=== PATIENT | female | born 1960 | race Caucasian/White ===

== ENCOUNTER → 2017-09-22 | Outpatient (CLI) | payer OTHER ==
[~2017-09-22] MED LIST: ACET-2900 PO; ALBU8.5H8 IH; ARIP5TAB9 PO; CALC560O TP; CYCL30DR OP; DICL4100G TP; ERGO500014 PO; EYEL1KIT TP; FLUT100B IH; FLUT9.9S NS; FOLI0.8T PO; IRON50VI3 IJ; LIDOP TP; LIGH1DRO OP; MONT10TA24 PO; PROM25 PO; PROM6.25 PO; TRIA15CR48 TP; VITAMIN B12 1000 MCG IM; [UNRECOGNIZED DRUG - CODE] PO
== END | disposition home or self-care (01) ==
LOC: OIH 13:41
PROVIDERS: ATTEND Internal Medicine Cardiovascular Disease
DX: Z13.6 Encounter for screening for cardiovascular disorders (principal)
CPT/HCPCS: 75571

== ENCOUNTER → 2017-12-04 | Outpatient (CLI) | payer MEDICARE, BC ==
[~2017-12-04] MED LIST changes: -PROM6.25 PO; +PROM6.254 PO
[2017-12-04 13:36] LABS: ABG BASE EXCESS 4.2 mmol/L (-2.0-3.0); ABG HCO3 28.7 mmol/L (21.0-28.0); ABG PCO2 43 mmHg (32-45)
== END | disposition home or self-care (01) ==
LOC: RAH 14:03
PROVIDERS: ATTEND Urology
DX: N20.0 Calculus of kidney (principal); K57.90 Diverticulosis of intestine, part unspecified, without perforation or abscess without bleeding; R79.89 Other specified abnormal findings of blood chemistry; Z87.440 Personal history of urinary (tract) infections
CPT/HCPCS: 76770; 82330; 82435; 82803; 82947; 83605; 84132; 84295; 85018

== ENCOUNTER → 2018-04-04 | Outpatient (CLI) | payer MEDICARE, BC | END | disposition home or self-care (01) | LOC: RAH 10:37 | PROVIDERS: ATTEND Internal Medicine | DX: R10.9 Unspecified abdominal pain (principal); R11.2 Nausea with vomiting, unspecified; R14.0 Abdominal distension (gaseous); Z98.84 Bariatric surgery status | CPT/HCPCS: 78264; A9541 ==

== ENCOUNTER → 2019-07-04 | Outpatient (CLI) | payer MEDICARE ==
[~2019-07-04] MED LIST changes: -ACET-2900 PO; +ACET-3194 PO; +ARIP5TAB13 PO; -ARIP5TAB9 PO
== END | disposition home or self-care (01) ==
LOC: RAH 12:09
PROVIDERS: ATTEND Internal Medicine
DX: M47.812 Spondylosis without myelopathy or radiculopathy, cervical region (principal)
CPT/HCPCS: 72040

== ENCOUNTER → 2020-01-09 | Outpatient (CLI) | payer MEDICARE | END | disposition home or self-care (01) | LOC: RAH 12:30 | PROVIDERS: ATTEND Physical Medicine & Rehabilitation | DX: M47.812 Spondylosis without myelopathy or radiculopathy, cervical region (principal) ==

== ENCOUNTER 2020-07-23 11:12 | Emergency (ER) | payer MEDICARE ==
[~2020-07-23 11:12] MED LIST changes: -ALBU8.5H8 IH; -ARIP5TAB13 PO; -CALC560O TP; +CHOL12502 PO; +CLOP75TA14 PO; -CYCL30DR OP; +DIPH1TAB PO; -ERGO500014 PO; +ESTR42.53 VG; -EYEL1KIT TP; +FAMO20TA8 PO; -FLUT100B IH; -FLUT9.9S NS; -FOLI0.8T PO; +FOLI0.8T3 PO; -IRON50VI3 IJ; +LAMO25TA3 PO; -LIDOP TP; -LIGH1DRO OP; +LOPE2TAB26 PO; -MONT10TA24 PO; +PREG25 PO; +PROM12.513 PO; -PROM25 PO; -PROM6.254 PO; +ROSU5TAB12 PO; +TEMO15C TP; +TIZA-211 PO; -TRIA15CR48 TP; -[UNRECOGNIZED DRUG - CODE] PO
[2020-07-23] MEDS ORDERED: MAG/ALUM/SIMETH 30 ML UDCUP ONE (11:40)
[2020-07-23] MEDS ORDERED: LIDOCAINE HCL 2% VISCOUS 15 ML UDCUP ONE (11:40)
[2020-07-23 11:51] LABS: BASOPHILS % (AUTO) 0.8 % (0.0-5.0); EOSINOPHILS % (AUTO) 2.2 % (0.0-8.0); HEMATOCRIT 43.7 % (36-48); LYMPHOCYTES % (AUTO) 34.9 % (21.0-51.0); MEAN CORPUSCULAR HEMOGLOBIN 30.5 pg (27.0-33.0); MEAN CORPUSCULAR HGB CONC 33.4 g/dL (32.0-36.0); MEAN CORPUSCULAR VOLUME 91.2 fL (79-99); MONOCYTES % (AUTO) 9.4 % (3.0-13.0); NEUTROPHILS % (AUTO) 52.5 % (40.0-77.0); PLATELET COUNT (AUTO) 192 K/uL (130-400); RED BLOOD CELL COUNT(AUTO) 4.79 MIL/uL (4.00-5.50); RED CELL DISTRIBUTION WIDTH 12.2 % (11.0-15.5)
[2020-07-23 12:17] LABS: ALBUMIN 4.3 g/dL (3.5-5.0); BILIRUBIN,TOTAL 0.4 mg/dL (0.2-1.0); CREATININE 0.9 mg/dL (0.5-1.5); MAGNESIUM 2.3 mg/dL (1.80-2.40); TOTAL PROTEIN, SERUM 7.5 g/dL (6.0-8.3)
[2020-07-23 12:22] LABS: APPEARANCE,URINE Clear (CLEAR); BILIRUBIN,URINE Negative (NEGATIVE); COLOR,URINE Yellow (YELLOW); GLUCOSE, URINE (UA) Negative (NEGATIVE); KETONES,URINE Negative (NEGATIVE); LEUKOCYTE ESTERASE ,URINE Trace (NEGATIVE); NITRATE,URINE Negative (NEGATIVE); OCCULT BLOOD,URINE Negative (NEGATIVE); PROTEIN,URINE Negative (NEGATIVE); UROBILINOGEN,URINE 0.2 mg/dL (0.2-1.0)
[2020-07-23 12:45] LABS: BACTERIA,URINE Rare /HPF (None Seen); MUCUS,URINE Rare LPF (None Seen); RBC,URINE 0-1 /HPF (0-1); SQUAMOUS EPITHELIAL CELL,UR Rare /HPF (0-2); WBC,URINE 0-1 /HPF (0-1)
[2020-07-23] MEDS ORDERED: IOHEXOL 350 MG/ML 100ML INFUS..BTL IV ONE (12:49)
[2020-07-23] MEDS ORDERED: PANTOPRAZOLE 40 MG/VIAL ONE (12:53)
[2020-07-23] MEDS ORDERED: BISACODYL 10 MG SUPP.RECT RC ONE (14:10)
[2020-07-23] MEDS ORDERED: MAGNESIUM CITRATE 296 ML SOLUTION PO SCH (14:30)
[2020-07-23] MEDS ORDERED: MAGNESIUM CITRATE 296 ML SOLUTION ONE (14:53)
[2020-07-23] MEDS ORDERED: PROCHLORPERAZINE 10MG/2ML INJ ONE (16:09)
[2021-01-26] MEDS ORDERED: PHENERG GT (14:50)
== END 2020-07-23 16:39 | disposition home or self-care (01) ==
LOC: EDH 11:12
DX: K59.00 Constipation, unspecified (principal); R11.10 Vomiting, unspecified; M19.90 Unspecified osteoarthritis, unspecified site; F31.9 Bipolar disorder, unspecified; K21.9 Gastro-esophageal reflux disease without esophagitis; I10 Essential (primary) hypertension; J45.909 Unspecified asthma, uncomplicated; Z90.49 Acquired absence of other specified parts of digestive tract; Z88.5 Allergy status to narcotic agent; Z88.1 Allergy status to other antibiotic agents; Z88.2 Allergy status to sulfonamides; Z88.8 Allergy status to other drugs, medicaments and biological substances; Z91.041 Radiographic dye allergy status
CPT/HCPCS: 36415; 74176; 80053; 81001; 82150; 83690; 83735; 85025; 93005; 96361; 96372; 96374; 99285; C9113; J0780; Q9967

== ENCOUNTER 2020-08-29 09:11 | Emergency (ER) | payer MEDICARE ==
[~2020-08-29 09:11] MED LIST changes: +FOLI0.8T PO; -FOLI0.8T3 PO; -TIZA-211 PO; +TIZA4TAB5 PO
[2020-08-29 10:38] LABS: BASOPHILS % (AUTO) 0.8 % (0.0-5.0); LYMPHOCYTES % (AUTO) 31.8 % (21.0-51.0); MEAN CORPUSCULAR HEMOGLOBIN 29.8 pg (27.0-33.0); MEAN CORPUSCULAR HGB CONC 32.7 g/dL (32.0-36.0); MEAN CORPUSCULAR VOLUME 91.1 fL (79-99); MONOCYTES % (AUTO) 8.4 % (3.0-13.0); NEUTROPHILS % (AUTO) 55.8 % (40.0-77.0); PLATELET COUNT (AUTO) 197 K/uL (130-400); RED BLOOD CELL COUNT(AUTO) 4.94 MIL/uL (4.00-5.50); RED CELL DISTRIBUTION WIDTH 12.6 % (11.0-15.5)
[2020-08-29] MEDS ORDERED: DIATR MEGLU/DIATRIZOATE SODIUM 30 ML BOTTLE ONE (10:38)
[2020-08-29 10:50] LABS: CREATININE 0.9 mg/dL (0.5-1.5); POTASSIUM 3.6 mmol/L (3.5-5.1)
[2020-08-29 10:54] LABS: ALBUMIN 4.4 g/dL (3.5-5.0); BILIRUBIN,TOTAL 0.6 mg/dL (0.2-1.0); TOTAL PROTEIN, SERUM 7.8 g/dL (6.0-8.3)
== END 2020-08-29 13:00 | disposition home or self-care (01) ==
LOC: EDH 09:11
DX: R13.10 Dysphagia, unspecified (principal); F41.9 Anxiety disorder, unspecified; R06.00 Dyspnea, unspecified; Z20.822 Contact with and (suspected) exposure to COVID-19; M19.90 Unspecified osteoarthritis, unspecified site; J45.909 Unspecified asthma, uncomplicated; F31.9 Bipolar disorder, unspecified; E11.9 Type 2 diabetes mellitus without complications; K21.9 Gastro-esophageal reflux disease without esophagitis; I10 Essential (primary) hypertension; Z90.49 Acquired absence of other specified parts of digestive tract; Z98.890 Other specified postprocedural states; Z91.041 Radiographic dye allergy status; Z88.5 Allergy status to narcotic agent; Z88.6 Allergy status to analgesic agent; Z88.2 Allergy status to sulfonamides; Z88.1 Allergy status to other antibiotic agents
CPT/HCPCS: 36415; 70490; 71045; 80053; 85025; 87426; 93005; 99285; Q9963; U0003

== ENCOUNTER → 2020-09-01 | Outpatient (CLI) | payer MEDICARE ==
[~2020-09-01] MED LIST changes: +FOLI1 PO; +SUCR1TAB28 PO
== END | disposition home or self-care (01) ==
LOC: RAH 10:02
PROVIDERS: ATTEND Internal Medicine Gastroenterology
DX: R13.12 Dysphagia, oropharyngeal phase (principal); R63.3 Feeding difficulties
CPT/HCPCS: 74230; 92611

== ENCOUNTER 2020-09-04 14:11 | Inpatient (IN) | payer MEDICARE ==
[~2020-09-04] VITALS: Ht 160 cm; Wt 66.7 kg
[~2020-09-04 14:11] MED LIST changes: -FOLI0.8T PO; +FOLI0.8T3 PO; -FOLI1 PO; -SUCR1TAB28 PO; +TIZA-211 PO; -TIZA4TAB5 PO
[2020-09-04] MEDS ORDERED: FOLI1 PO (14:22)
[2020-09-04] MEDS ORDERED: SUCR1TAB28 PO (14:22)
[2020-09-04] MEDS ORDERED: POTASSIUM CHLORIDE 20MEQ/100ML 100 ML IV PRN (15:00)
[2020-09-04] MEDS ORDERED: ACETAMINOPHEN 325 MG TAB PO PRN ×2 (15:00)
[2020-09-04] MEDS ORDERED: LIDOCAINE HCL-MPF 1% 2ML VIAL IV PRN (15:00)
[2020-09-04] MEDS ORDERED: PHARMACY COMMUNICATION MISC SCH ×2 (15:15)
[2020-09-04] MEDS ORDERED: GADODIAMIDE 10 MMOL/20 ML VIAL IV ONE (15:15)
[2020-09-04 15:40] LABS: BASOPHILS % (AUTO) 0.9 % (0.0-5.0); EOSINOPHILS % (AUTO) 2.1 % (0.0-8.0); HEMATOCRIT 45.1 % (36-48); LYMPHOCYTES % (AUTO) 32.6 % (21.0-51.0); MEAN CORPUSCULAR HEMOGLOBIN 30.2 pg (27.0-33.0); MEAN CORPUSCULAR HGB CONC 33.5 g/dL (32.0-36.0); MEAN CORPUSCULAR VOLUME 90.2 fL (79-99); MONOCYTES % (AUTO) 7.5 % (3.0-13.0); NEUTROPHILS % (AUTO) 56.7 % (40.0-77.0); PLATELET COUNT (AUTO) 214 K/uL (130-400); RED CELL DISTRIBUTION WIDTH 12.5 % (11.0-15.5); WHITE BLOOD COUNT (AUTO) 6.5 K/uL (4.8-10.8)
[2020-09-04 15:52] LABS: INR 0.97 (0.85-1.15); PROTHROMBIN TIME 10.6 SEC (9.6-11.6)
[2020-09-04 15:53] LABS: PARTIAL THROMBOPLASTIN TIME 25.3 SEC (26.3-35.5)
[2020-09-04] MEDS ORDERED: CLINIMIX-E4.25%AA/D5+LYT2000ML 2,000 ML IV ONE (16:00)
[2020-09-04 16:01] LABS: CREATININE 0.9 mg/dL (0.5-1.5); POTASSIUM 4.2 mmol/L (3.5-5.1)
[2020-09-04 16:06] LABS: ALBUMIN 4.4 g/dL (3.5-5.0); B-TYPE NATRIURETIC PEPTIDE < 5 pg/mL (0-100); BILIRUBIN,TOTAL 0.6 mg/dL (0.2-1.0); TOTAL PROTEIN, SERUM 7.6 g/dL (6.0-8.3)
[2020-09-04 17:10] VITALS: BP 130/79
[2020-09-04] MEDS: 0.9%NACL 1000ML 1,000 ML IV SCH (17:56)
[2020-09-04] MEDS: FERROUS GLUC NG SCH (17:57)
[2020-09-04] MEDS: MULTIVITS W MIN NG SCH (17:57)
[2020-09-04 20:00] VITALS: BP 153/102
[2020-09-04] MEDS: LAMOTRIGINE 25 MG TAB PO SCH (21:46)
[2020-09-04 23:43] VITALS: BP 148/90
[2020-09-05 04:00] VITALS: BP 146/87
[2020-09-05 04:03] LABS: HEMATOCRIT 40.8 % (36-48); MEAN CORPUSCULAR HEMOGLOBIN 29.5 pg (27.0-33.0); MEAN CORPUSCULAR HGB CONC 32.8 g/dL (32.0-36.0); MEAN CORPUSCULAR VOLUME 89.9 fL (79-99); RED BLOOD CELL COUNT(AUTO) 4.54 MIL/uL (4.00-5.50); RED CELL DISTRIBUTION WIDTH 12.3 % (11.0-15.5); WHITE BLOOD COUNT (AUTO) 5.3 K/uL (4.8-10.8)
[2020-09-05 04:14] LABS: CREATININE 0.7 mg/dL (0.5-1.5); POTASSIUM 4.1 mmol/L (3.5-5.1)
[2020-09-05] MEDS: 0.9%NACL 1000ML 1,000 ML IV SCH (04:43)
[2020-09-05] MEDS: FERROUS GLUC NG SCH ×2 (09:00→10:00)
[2020-09-05] MEDS: MULTIVITS W MIN NG SCH ×2 (09:00→10:00)
[2020-09-05 09:08] VITALS: BP 135/85
[2020-09-05 13:12] VITALS: BP 145/91
[2020-09-05] MEDS: DiphenhydrAMINE HCL 25 MG/10 ML ELIXIR UDCUP PEG PRN (16:59)
[2020-09-05 17:35] VITALS: BP 158/98
[2020-09-05 19:31] VITALS: BP 146/92
[2020-09-05] MEDS ORDERED: CLINIMIX-E4.25%AA/D5+LYT2000ML 2,000 ML IV ONE (20:00)
[2020-09-05] MEDS: LAMOTRIGINE 25 MG TAB PO SCH (21:47)
[2020-09-05 23:48] VITALS: BP 140/92
[2020-09-06 04:00] VITALS: BP 139/88
[2020-09-06] MEDS: 0.9%NACL 1000ML 1,000 ML IV SCH (06:28)
[2020-09-06 08:00] VITALS: BP 135/82
[2020-09-06] MEDS: MULTIVITS W MIN NG SCH (09:11)
[2020-09-06] MEDS: FERROUS GLUC NG SCH (09:11)
[2020-09-06] MEDS: FAMOTIDINE 20MG VIAL IV SCH (09:11)
[2020-09-06] MEDS: DiphenhydrAMINE HCL 25 MG/10 ML ELIXIR UDCUP PEG PRN ×2 (10:40→20:22)
[2020-09-06 11:53] VITALS: BP 156/103
[2020-09-06] MEDS ORDERED: LACTULOSE 20 GM/30 ML UDCUP PO PRN (12:45)
[2020-09-06 16:00] VITALS: BP 161/99
[2020-09-06 20:00] VITALS: BP 157/90
[2020-09-06] MEDS ORDERED: CLINIMIX-E4.25%AA/D5+LYT2000ML 2,000 ML IV SCH (20:00)
[2020-09-06] MEDS: LAMOTRIGINE 25 MG TAB PO SCH (20:25)
[2020-09-07] VITALS (25 sets, daily range): BP systolic 136–151; BP diastolic 67–94
[2020-09-07] MEDS: FAMOTIDINE 20MG VIAL IV SCH (09:00)
[2020-09-07] MEDS: FERROUS GLUC NG SCH (09:00)
[2020-09-07] MEDS: MULTIVITS W MIN NG SCH (09:00)
[2020-09-07] MEDS ORDERED: MAGNESIUM HYDROXIDE 30 ML/UDCUP PO PRN (09:45)
[2020-09-07] MEDS ORDERED: LIDOCAINE PF 100MG/5ML (2%) SYRINGE 5ML ONE (12:23)
[2020-09-07] MEDS ORDERED: ROCURONIUM 10MG/1ML SYR 10 MG/ML ML ONE (12:24)
[2020-09-07] MEDS ORDERED: MIDAZOLAM HCL 1 MG/ML 2ML VIAL ONE (12:24)
[2020-09-07] MEDS ORDERED: PROPOFOL 10 MG/ML 20ML VIAL IV ONE ×4 (12:24→13:52)
[2020-09-07] MEDS ORDERED: MEPERIDINE-PF 25 MG/ML SYG ONE ×2 (12:25→14:29)
[2020-09-07] MEDS ORDERED: BUPIVACAINE/PF 0.25% 30ML VIAL IJ ONE (13:27)
[2020-09-07] MEDS ORDERED: GLYCOPYRROLATE 1 MG/5 ML SYRINGE ONE (13:39)
[2020-09-07] MEDS ORDERED: NEOSTIGMINE 5MG/5ML SYR IV ONE (13:39)
[2020-09-07] MEDS ORDERED: DEXAMETHASONE SOD PHOSPHATE 10MG/ML 1ML VIAL ONE (13:43)
[2020-09-07] MEDS ORDERED: ESMOLOL HCL 10 MG/ML 10 ML VIAL ONE (13:45)
[2020-09-07] MEDS: ACETAMINOPHEN 650 MG/20.3 ML UDCUP PEG PRN (18:31)
[2020-09-07] MEDS: LAMOTRIGINE 25 MG TAB PO SCH (21:00)
[2020-09-07] MEDS ORDERED: ONDANSETRON 4MG INJ ONE (23:10)
[2020-09-07] MEDS ORDERED: ONDANSETRON 4MG INJ IVP PRN (23:15)
[2020-09-07] MEDS ORDERED: PROMETHAZINE HCL 25 MG/ML 1ML AMPULE IM PRN (23:30)
[2020-09-08 04:00] VITALS: BP 147/76
[2020-09-08 05:41] LABS: MEAN CORPUSCULAR HEMOGLOBIN 29.6 pg (27.0-33.0); MEAN CORPUSCULAR HGB CONC 33.2 g/dL (32.0-36.0); MEAN CORPUSCULAR VOLUME 89.3 fL (79-99); RED BLOOD CELL COUNT(AUTO) 4.59 MIL/uL (4.00-5.50); WHITE BLOOD COUNT (AUTO) 8.6 K/uL (4.8-10.8)
[2020-09-08 05:55] LABS: CREATININE 0.7 mg/dL (0.5-1.5); POTASSIUM 4.4 mmol/L (3.5-5.1)
[2020-09-08 07:35] VITALS: BP 155/88
[2020-09-08] MEDS: MULTIVITS W MIN NG SCH (09:00)
[2020-09-08] MEDS: FERROUS GLUC NG SCH (09:00)
[2020-09-08] MEDS ORDERED: CLINIMIX-E4.25%AA/D5+LYT2000ML 2,000 ML IV NR (09:00)
[2020-09-08] MEDS: FAMOTIDINE 20MG VIAL IV SCH (10:10)
[2020-09-08] MEDS: PROMETHAZINE HCL 25 MG/ML 1ML AMPULE IM PRN ×2 (10:29→22:53)
[2020-09-08 11:36] VITALS: BP 154/86
[2020-09-08 15:57] VITALS: BP 152/85
[2020-09-08 20:25] VITALS: BP 145/82
[2020-09-08] MEDS: LAMOTRIGINE 25 MG TAB PO SCH (20:38)
[2020-09-08 23:30] VITALS: BP 119/74
[2020-09-09] MEDS: ACETAMINOPHEN 650 MG/20.3 ML UDCUP PEG PRN ×2 (02:39→16:13)
[2020-09-09 03:50] VITALS: BP 118/63
[2020-09-09 06:19] LABS: MAGNESIUM 1.9 mg/dL (1.80-2.40); PHOSPHORUS 4.1 mg/dL (2.5-4.9)
[2020-09-09] MEDS: MULTIVITS W MIN NG SCH (09:00)
[2020-09-09] MEDS ORDERED: RANITIDINE HCL 15 MG/1 ML GT SCH (09:00)
[2020-09-09] MEDS: FERROUS GLUC NG SCH (09:00)
[2020-09-09 09:16] VITALS: BP 122/82
[2020-09-09 12:26] VITALS: BP 127/87
[2020-09-09] MEDS: PROMETHAZINE HCL 25 MG/ML 1ML AMPULE IM PRN (16:12)
[2020-09-09] MEDS: FAMOTIDINE 20MG TAB PO SCH ×2 (16:12→22:08)
[2020-09-09 16:18] VITALS: BP 135/81
[2020-09-09 19:15] VITALS: BP 125/81
[2020-09-09] MEDS: DiphenhydrAMINE HCL 25 MG/10 ML ELIXIR UDCUP PEG PRN (22:08)
[2020-09-09] MEDS: LAMOTRIGINE 25 MG TAB PO SCH (22:08)
[2020-09-10] MEDS: GUAIFENESIN-DM 200/20 MG 10 ML PO PRN ×2 (00:02→08:10)
[2020-09-10 00:07] VITALS: BP 143/85
[2020-09-10 04:12] VITALS: BP 122/78
[2020-09-10 05:09] LABS: HEMATOCRIT 40.3 % (36-48); MEAN CORPUSCULAR HEMOGLOBIN 29.6 pg (27.0-33.0); MEAN CORPUSCULAR HGB CONC 32.8 g/dL (32.0-36.0); MEAN CORPUSCULAR VOLUME 90.4 fL (79-99); RED BLOOD CELL COUNT(AUTO) 4.46 MIL/uL (4.00-5.50); RED CELL DISTRIBUTION WIDTH 12.4 % (11.0-15.5); WHITE BLOOD COUNT (AUTO) 6.9 K/uL (4.8-10.8)
[2020-09-10 05:18] LABS: CREATININE 0.8 mg/dL (0.5-1.5); POTASSIUM 3.6 mmol/L (3.5-5.1)
[2020-09-10] MEDS: FAMOTIDINE 20MG TAB PO SCH (08:10)
[2020-09-10] MEDS: DiphenhydrAMINE HCL 25 MG/10 ML ELIXIR UDCUP PEG PRN (08:10)
[2020-09-10 08:44] VITALS: BP 134/87
[2020-09-10] MEDS: MULTIVITS W MIN NG SCH (09:00)
[2020-09-10] MEDS: FERROUS GLUC NG SCH (09:00)
[2020-09-10] MEDS ORDERED: CETI-261 PO (09:31)
[2020-09-10] MEDS ORDERED: GUAIF10 PO (09:31)
[2020-09-10] MEDS ORDERED: FERROUS GLUC NG (09:33)
[2020-09-10] MEDS ORDERED: MULTIVITS W MIN NG (09:33)
[2020-09-10] MEDS ORDERED: ACET650S28 PEG (09:34)
[2020-09-10] MEDS ORDERED: CAL HN GT (09:46)
[2020-09-10 13:45] VITALS: BP 145/91
[2021-01-26] MEDS ORDERED: PHENERG GT (14:50)
== END 2020-09-10 19:55 | DRG 327 ==
LOC: EDH 14:11 → EDHIP 14:48 → 3BH 15:54
PROVIDERS: ADMIT Internal Medicine; ATTEND Internal Medicine
PROC: 0DH60UZ Insertion of Feeding Device into Stomach, Open Approach (ICD-10-PCS; principal; 2020-09-07 13:02)
DX: R13.12 Dysphagia, oropharyngeal phase (principal); K91.2 Postsurgical malabsorption, not elsewhere classified; G72.0 Drug-induced myopathy; S19.9XXA Unspecified injury of neck, initial encounter; D63.8 Anemia in other chronic diseases classified elsewhere; E11.43 Type 2 diabetes mellitus with diabetic autonomic (poly)neuropathy; E53.8 Deficiency of other specified B group vitamins; E55.9 Vitamin D deficiency, unspecified; K31.84 Gastroparesis; F31.9 Bipolar disorder, unspecified; E78.2 Mixed hyperlipidemia; G47.33 Obstructive sleep apnea (adult) (pediatric); I70.0 Atherosclerosis of aorta; J38.01 Paralysis of vocal cords and larynx, unilateral; J45.909 Unspecified asthma, uncomplicated; K21.9 Gastro-esophageal reflux disease without esophagitis; K52.831 Collagenous colitis; L40.50 Arthropathic psoriasis, unspecified; N30.20 Other chronic cystitis without hematuria; N32.81 Overactive bladder; M15.9 Polyosteoarthritis, unspecified; T46.6X5A Adverse effect of antihyperlipidemic and antiarteriosclerotic drugs, initial encounter; Y93.89 Activity, other specified; Y92.89 Other specified places as the place of occurrence of the external cause; Y99.8 Other external cause status; Z88.5 Allergy status to narcotic agent; Z88.2 Allergy status to sulfonamides; Z88.8 Allergy status to other drugs, medicaments and biological substances; Z79.02 Long term (current) use of antithrombotics/antiplatelets; Z79.899 Other long term (current) drug therapy; Z98.84 Bariatric surgery status; Z91.19 Patient's noncompliance with other medical treatment and regimen; Z90.710 Acquired absence of both cervix and uterus; Z86.73 Personal history of transient ischemic attack (TIA), and cerebral infarction without residual deficits; Z83.3 Family history of diabetes mellitus; Z82.5 Family history of asthma and other chronic lower respiratory diseases; Z82.49 Family history of ischemic heart disease and other diseases of the circulatory system; Z82.3 Family history of stroke; Z82.0 Family history of epilepsy and other diseases of the nervous system; Y83.8 Other surgical procedures as the cause of abnormal reaction of the patient, or of later complication, without mention of misadventure at the time of the procedure; Y73.8 Miscellaneous gastroenterology and urology devices associated with adverse incidents, not elsewhere classified
CPT/HCPCS: 36415; 70490; 70553; 71045; 74230; 80048; 80053; 82550; 82948; 83605; 83690; 83735; 83880; 84100; 84484; 85025; 85027; 85610; 85730; 87040; 92526; 92610; 92611; 93005; 97039; A9579; G0378; J1100; J2001; J2175; J2250; J2405; J2550; J2704; J2710; J3490; J7030

== ENCOUNTER 2020-09-21 11:45 | Inpatient (IN) | payer MEDICARE ==
[~2020-09-21] VITALS: Ht 160 cm; Wt 66.3 kg
[~2020-09-21 11:45] MED LIST changes: -ACET-3194 PO; +ACET650S28 PEG; +CAL HN GT; +CETI-261 PO; -CHOL12502 PO; -DICL4100G TP; -DIPH1TAB PO; -ESTR42.53 VG; -FAMO20TA8 PO; +FERROUS GLUC NG; -FOLI0.8T3 PO; +GUAIF10 PO; -LOPE2TAB26 PO; +MULTIVITS W MIN NG; -PREG25 PO; -PROM12.513 PO; -TEMO15C TP; -TIZA-211 PO; -VITAMIN B12 1000 MCG IM
[2020-09-21] MEDS ORDERED: DIATR MEGLU/DIATRIZOATE SODIUM 30 ML BOTTLE ONE (14:05)
[2020-09-21] MEDS: 0.9%NACL 1000ML 1,000 ML IV SCH ×2 (18:30→23:00)
[2020-09-21 20:40] VITALS: BP 131/85
[2020-09-21] MEDS ORDERED: 0.9%NACL 1000ML 1,000 ML IV SCH (21:00)
[2020-09-21] MEDS ORDERED: CEPH500T PO (21:32)
[2020-09-21] MEDS ORDERED: POTASSIUM CHLORIDE 20MEQ/100ML 100 ML IV PRN (23:00)
[2020-09-21] MEDS ORDERED: KCL 20 MEQ ERTAB PO PRN (23:00)
[2020-09-21] MEDS ORDERED: POTASSIUM CHLORIDE 10% ELIXIR 20 MEQ/15 ML UDCUP PO PRN (23:00)
[2020-09-21] MEDS ORDERED: ACETAMINOPHEN 325 MG TAB PO PRN (23:00)
[2020-09-21] MEDS ORDERED: LIDOCAINE HCL-MPF 1% 2ML VIAL IV PRN (23:00)
[2020-09-21] MEDS ORDERED: PROMETHAZINE HCL 25 MG/ML 1ML AMPULE IM PRN (23:00)
[2020-09-21 23:57] VITALS: BP_SYST 72
[2020-09-22 04:00] VITALS: BP 110/68
[2020-09-22] MEDS: 0.9%NACL 1000ML 1,000 ML IV SCH ×5 (05:26→19:13)
[2020-09-22 05:30] LABS: BASOPHILS % (AUTO) 0.9 % (0.0-5.0); HEMATOCRIT 36.7 % (36-48); LYMPHOCYTES % (AUTO) 28.8 % (21.0-51.0); MEAN CORPUSCULAR HEMOGLOBIN 29.8 pg (27.0-33.0); MEAN CORPUSCULAR HGB CONC 32.4 g/dL (32.0-36.0); NEUTROPHILS % (AUTO) 58.8 % (40.0-77.0); PLATELET COUNT (AUTO) 228 K/uL (130-400); RED BLOOD CELL COUNT(AUTO) 3.99 MIL/uL (4.00-5.50); RED CELL DISTRIBUTION WIDTH 12.1 % (11.0-15.5); WHITE BLOOD COUNT (AUTO) 7.8 K/uL (4.8-10.8)
[2020-09-22 05:42] LABS: CREATININE 0.7 mg/dL (0.5-1.5)
[2020-09-22 05:55] LABS: INR 1.03 (0.85-1.15); PROTHROMBIN TIME 11.2 SEC (9.6-11.6)
[2020-09-22 05:56] LABS: PARTIAL THROMBOPLASTIN TIME 25.1 SEC (26.3-35.5)
[2020-09-22] MEDS ORDERED: PROMETHAZINE HCL 25 MG/ML 1ML AMPULE IM PRN (07:00)
[2020-09-22] MEDS: KETOROLAC 30MG VIAL (30MG/ML) IV PRN (07:09)
[2020-09-22 08:08] VITALS: BP 131/78
[2020-09-22] MEDS ORDERED: ACET650O3 PO (09:23)
[2020-09-22] MEDS ORDERED: [UNRECOGNIZED DRUG - CODE] PO ×2 (09:23→09:24)
[2020-09-22] MEDS ORDERED: METOCLOPRAMIDE 10 MG/2 ML VIAL IVP PRN (09:30)
[2020-09-22] MEDS: MEPERIDINE-PF 25 MG/ML SYG IM PRN ×2 (10:34→15:53)
[2020-09-22] MEDS: METOCLOPRAMIDE 10 MG/2 ML VIAL IVP SCH ×2 (10:34→14:12)
[2020-09-22 11:00] VITALS: BP 123/83
[2020-09-22 16:23] VITALS: BP 128/84
[2020-09-22 17:25] LABS: BASOPHILS % (AUTO) 0.5 % (0.0-5.0); EOSINOPHILS % (AUTO) 0.2 % (0.0-8.0); HEMATOCRIT 30.7 % (36-48); LYMPHOCYTES % (AUTO) 15.6 % (21.0-51.0); MEAN CORPUSCULAR HEMOGLOBIN 30.3 pg (27.0-33.0); MEAN CORPUSCULAR HGB CONC 32.6 g/dL (32.0-36.0); MONOCYTES % (AUTO) 5.1 % (3.0-13.0); NEUTROPHILS % (AUTO) 78.1 % (40.0-77.0); PLATELET COUNT (AUTO) 253 K/uL (130-400); RED CELL DISTRIBUTION WIDTH 12.3 % (11.0-15.5); WHITE BLOOD COUNT (AUTO) 13.8 K/uL (4.8-10.8)
[2020-09-22 19:48] VITALS: BP 120/72
[2020-09-22 23:45] VITALS: BP 116/56
[2020-09-23] MEDS: 0.9%NACL 1000ML 1,000 ML IV SCH ×3 (00:30→14:55)
[2020-09-23 03:42] VITALS: BP 115/71
[2020-09-23] MEDS: MEPERIDINE-PF 25 MG/ML SYG IM PRN (05:19)
[2020-09-23] MEDS: KETOROLAC 30MG VIAL (30MG/ML) IV PRN (07:59)
[2020-09-23 08:00] VITALS: BP 130/75
[2020-09-23] MEDS: ACETAMINOPHEN 325 MG/10.15ML UDCUP PO PRN ×2 (09:52→16:29)
[2020-09-23] MEDS: FAMOTIDINE 20MG VIAL IV SCH ×2 (09:53→20:54)
[2020-09-23 11:35] VITALS: BP 117/76
[2020-09-23 16:00] VITALS: BP 133/78
[2020-09-23 20:00] VITALS: BP 126/78
[2020-09-24] VITALS: BP 121/73
[2020-09-24] MEDS ORDERED: ACETAMINOPHEN 650 MG/20.3 ML UDCUP ONE ×2 (02:40→08:54)
[2020-09-24] MEDS: ACETAMINOPHEN 325 MG/10.15ML UDCUP PO PRN (02:43)
[2020-09-24 04:00] VITALS: BP 110/64
[2020-09-24 08:00] VITALS: BP 121/82
[2020-09-24] MEDS ORDERED: CEFTRIAXONE 1G VIAL IVP SCH (08:00)
[2020-09-24] MEDS: FAMOTIDINE 20MG VIAL IV SCH (08:36)
[2020-09-24 11:42] VITALS: BP 127/80
[2020-09-24 16:00] VITALS: BP 120/58
[2021-01-26] MEDS ORDERED: PHENERG GT (14:50)
== END 2020-09-24 19:00 | DRG 394 ==
LOC: EDH 11:45 → OBSVTOIN 17:35 → EDHIP 17:35 → 3BH 19:52
PROVIDERS: ADMIT Internal Medicine; ATTEND Internal Medicine
PROC: 0D20XUZ Change Feeding Device in Upper Intestinal Tract, External Approach (ICD-10-PCS; principal; 2020-09-21)
DX: K94.23 Gastrostomy malfunction (principal); K91.2 Postsurgical malabsorption, not elsewhere classified; G72.0 Drug-induced myopathy; K21.9 Gastro-esophageal reflux disease without esophagitis; F31.9 Bipolar disorder, unspecified; E78.5 Hyperlipidemia, unspecified; E11.43 Type 2 diabetes mellitus with diabetic autonomic (poly)neuropathy; M19.90 Unspecified osteoarthritis, unspecified site; K52.831 Collagenous colitis; J45.909 Unspecified asthma, uncomplicated; K31.84 Gastroparesis; D63.8 Anemia in other chronic diseases classified elsewhere; E53.8 Deficiency of other specified B group vitamins; E55.9 Vitamin D deficiency, unspecified; G47.33 Obstructive sleep apnea (adult) (pediatric); I70.0 Atherosclerosis of aorta; L40.50 Arthropathic psoriasis, unspecified; N30.20 Other chronic cystitis without hematuria; N32.81 Overactive bladder; R13.10 Dysphagia, unspecified; T46.6X5A Adverse effect of antihyperlipidemic and antiarteriosclerotic drugs, initial encounter; Y92.89 Other specified places as the place of occurrence of the external cause; Z88.5 Allergy status to narcotic agent; Z88.2 Allergy status to sulfonamides; Z88.8 Allergy status to other drugs, medicaments and biological substances; Z91.041 Radiographic dye allergy status; Z98.84 Bariatric surgery status; Z79.02 Long term (current) use of antithrombotics/antiplatelets; Z91.19 Patient's noncompliance with other medical treatment and regimen; Z86.73 Personal history of transient ischemic attack (TIA), and cerebral infarction without residual deficits; Z82.5 Family history of asthma and other chronic lower respiratory diseases; Z82.3 Family history of stroke; Z82.49 Family history of ischemic heart disease and other diseases of the circulatory system; Z82.0 Family history of epilepsy and other diseases of the nervous system; Z83.3 Family history of diabetes mellitus
CPT/HCPCS: 36415; 74018; 74150; 80048; 82270; 85025; 85610; 85730; G0378; J0696; J1885; J2175; J2550; J2765; J3490; J7030; Q9963

== ENCOUNTER 2020-09-25 08:28 | Observation (INO) | payer MEDICARE ==
[~2020-09-25] VITALS: Ht 160 cm; Wt 66.1 kg
[~2020-09-25 08:28] MED LIST changes: +ACET650O3 PO; -ACET650S28 PEG; -CAL HN GT; +CEPH500T PO; -FERROUS GLUC NG; -GUAIF10 PO; -MULTIVITS W MIN NG; +[UNRECOGNIZED DRUG - CODE] PO
[2020-09-25] MEDS ORDERED: 0.9%NACL 1000ML 1,000 ML IV ONE (09:32)
[2020-09-25 11:35] LABS: BASOPHILS % (AUTO) 0.9 % (0.0-5.0); HEMATOCRIT 26.1 % (36-48); LYMPHOCYTES % (AUTO) 28.5 % (21.0-51.0); MEAN CORPUSCULAR HEMOGLOBIN 30.4 pg (27.0-33.0); MEAN CORPUSCULAR HGB CONC 33.3 g/dL (32.0-36.0); MEAN CORPUSCULAR VOLUME 91.3 fL (79-99); MONOCYTES % (AUTO) 6.7 % (3.0-13.0); NEUTROPHILS % (AUTO) 60.3 % (40.0-77.0); PLATELET COUNT (AUTO) 237 K/uL (130-400); RED BLOOD CELL COUNT(AUTO) 2.86 MIL/uL (4.00-5.50); RED CELL DISTRIBUTION WIDTH 12.5 % (11.0-15.5); WHITE BLOOD COUNT (AUTO) 6.4 K/uL (4.8-10.8)
[2020-09-25 11:46] LABS: CREATININE 0.6 mg/dL (0.5-1.5); POTASSIUM 3.8 mmol/L (3.5-5.1)
[2020-09-25 11:51] LABS: ALBUMIN 3.4 g/dL (3.5-5.0); BILIRUBIN,TOTAL 0.3 mg/dL (0.2-1.0); TOTAL PROTEIN, SERUM 6.4 g/dL (6.0-8.3)
[2020-09-25] MEDS ORDERED: ACETAMINOPHEN 325 MG/10.15ML UDCUP ONE (11:52)
[2020-09-25] MEDS ORDERED: ACETAMINOPHEN 650 MG/20.3 ML UDCUP PEG PRN (12:15)
[2020-09-25 13:19] VITALS: BP 136/74
[2020-09-25] MEDS ORDERED: NUTRITIONAL SUPPLEMENT PO SCH (13:30)
[2020-09-25] MEDS ORDERED: [UNRECOGNIZED DRUG - OTHER] PO SCH (13:30)
[2020-09-25] MEDS ORDERED: ACETAMINOPHEN 325 MG TAB PO PRN (13:30)
[2020-09-25] MEDS ORDERED: KCL 20 MEQ ERTAB PO PRN (13:45)
[2020-09-25] MEDS ORDERED: POTASSIUM CHLORIDE 20MEQ/100ML 100 ML IV PRN (13:45)
[2020-09-25] MEDS ORDERED: POTASSIUM CHLORIDE 10% ELIXIR 20 MEQ/15 ML UDCUP PO PRN (13:45)
[2020-09-25] MEDS: 0.9%NACL 1000ML 1,000 ML IV SCH ×2 (13:45→22:28)
[2020-09-25] MEDS ORDERED: LIDOCAINE HCL-MPF 1% 2ML VIAL IV PRN (13:45)
[2020-09-25 16:40] VITALS: BP 147/67
[2020-09-25] MEDS: CEPHALEXIN 500 MG CAPSULE PO SCH ×2 (16:42→21:20)
[2020-09-25] MEDS: CLOPIDOGREL 75MG TAB PO SCH (16:42)
[2020-09-25 19:36] VITALS: BP 115/74
[2020-09-25] MEDS ORDERED: LAMOTRIGINE 25 MG TAB PO SCH (21:00)
[2020-09-25] MEDS ORDERED: CETIRIZINE HCL 5 MG TABLET PO SCH (21:00)
[2020-09-25] MEDS ORDERED: ATORVASTATIN 10 MG TABLET PO SCH (21:00)
[2020-09-26 00:01] VITALS: BP 129/81
[2020-09-26 03:20] VITALS: BP 118/85
[2020-09-26 08:00] VITALS: BP 111/72
[2020-09-26] MEDS: CEPHALEXIN 500 MG CAPSULE PO SCH (08:57)
[2020-09-26] MEDS: CLOPIDOGREL 75MG TAB PO SCH (08:57)
[2021-01-26] MEDS ORDERED: PHENERG GT (14:50)
== END 2020-09-26 13:12 | disposition home or self-care (01) ==
LOC: EDH 08:28 → 3BH 08:29
PROVIDERS: ADMIT Internal Medicine; ATTEND Internal Medicine
DX: K94.23 Gastrostomy malfunction (principal); D63.8 Anemia in other chronic diseases classified elsewhere; E11.43 Type 2 diabetes mellitus with diabetic autonomic (poly)neuropathy; E53.8 Deficiency of other specified B group vitamins; E55.9 Vitamin D deficiency, unspecified; E78.5 Hyperlipidemia, unspecified; F31.9 Bipolar disorder, unspecified; G47.33 Obstructive sleep apnea (adult) (pediatric); G72.0 Drug-induced myopathy; I70.0 Atherosclerosis of aorta; J45.909 Unspecified asthma, uncomplicated; K21.9 Gastro-esophageal reflux disease without esophagitis; K31.84 Gastroparesis; K52.831 Collagenous colitis; K91.2 Postsurgical malabsorption, not elsewhere classified; L40.50 Arthropathic psoriasis, unspecified; M19.90 Unspecified osteoarthritis, unspecified site; N30.20 Other chronic cystitis without hematuria; N32.81 Overactive bladder; Z86.73 Personal history of transient ischemic attack (TIA), and cerebral infarction without residual deficits; Z90.49 Acquired absence of other specified parts of digestive tract; Z91.19 Patient's noncompliance with other medical treatment and regimen; Z98.84 Bariatric surgery status; Z79.02 Long term (current) use of antithrombotics/antiplatelets; Z79.899 Other long term (current) drug therapy; Z88.1 Allergy status to other antibiotic agents; Z88.2 Allergy status to sulfonamides; Z88.0 Allergy status to penicillin; Z88.8 Allergy status to other drugs, medicaments and biological substances; Z88.5 Allergy status to narcotic agent
CPT/HCPCS: 36415; 80053; 85025; 96360; 96361 ×2; 99284; G0378 ×23; J7030 ×2

== ENCOUNTER → 2020-12-30 | Outpatient (CLI) | payer MEDICARE | END | disposition home or self-care (01) | LOC: RAH 14:52 | PROVIDERS: ATTEND Internal Medicine | DX: R05 Cough (principal) | CPT/HCPCS: 71046 ==

== ENCOUNTER → 2021-01-04 | Outpatient (CLI) | payer MEDICARE ==
[~2021-01-04] MED LIST changes: +DIATR MEGLU/DIATRIZOATE SODIUM 30 ML BOTTLE ONE
== END | disposition home or self-care (01) ==
LOC: RAH 13:15
PROVIDERS: ATTEND Student in an Organized Health Care Education/Training Program
DX: Z93.1 Gastrostomy status (principal)
CPT/HCPCS: 74018; Q9963

== ENCOUNTER 2021-01-27 10:17 | Day surgery (SDC) | payer MEDICARE ==
[2021-01-20 10:42] LABS: ALBUMIN 3.8 g/dL (3.5-5.0); BILIRUBIN,TOTAL 0.6 mg/dL (0.2-1.0); CREATININE 0.7 mg/dL (0.5-1.5); POTASSIUM 4.5 mmol/L (3.5-5.1)
[2021-01-26 14:37] VITALS: BP 135/85
[~2021-01-27] VITALS: Ht 160 cm; Wt 68.4 kg
[2021-01-27] VITALS (16 sets, daily range): BP systolic 106–143; BP diastolic 58–81
[~2021-01-27 10:17] MED LIST changes: +0.9%NACL 1000ML 1,000 ML IV SCH; -CEPH500T PO; -DIATR MEGLU/DIATRIZOATE SODIUM 30 ML BOTTLE ONE; +PHENERG GT; -[UNRECOGNIZED DRUG - CODE] PO
[2021-01-27] MEDS ORDERED: PROPOFOL 10 MG/ML 20ML VIAL IV ONE (10:54)
[2021-01-27] MEDS ORDERED: LIDOCAINE PF 100MG/5ML (2%) SYRINGE 5ML ONE ×2 (10:54→10:55)
[2021-01-27] MEDS ORDERED: SUCCINYLCHOLINE 200MG/10ML SYR ONE ×2 (10:54→10:55)
[2021-01-27] MEDS ORDERED: DEXAMETHASONE SOD PHOSPHATE 10MG/ML 1ML VIAL ONE (10:54)
[2021-01-27] MEDS ORDERED: MIDAZOLAM HCL 1 MG/ML 2ML VIAL ONE (10:54)
[2021-01-27] MEDS ORDERED: ROCURONIUM 10MG/1ML SYR 10 MG/ML ML ONE (10:55)
[2021-01-27] MEDS ORDERED: GLYCOPYRROLATE 1 MG/5 ML SYRINGE ONE (10:55)
[2021-01-27] MEDS ORDERED: FENTANYL CITRATE PF 50 MCG/1 ML 2ML VIAL ONE (10:55)
[2021-01-27] MEDS ORDERED: ONDANSETRON 4MG INJ ONE (10:55)
[2021-01-27] MEDS ORDERED: NEOSTIGMINE 5MG/5ML SYR IV ONE (10:55)
[2021-01-27] MEDS: CEFAZOLIN SODIUM 1 GM VIAL IVP SCH ×2 (10:59→12:00)
== END 2021-01-27 14:05 | disposition home or self-care (01) ==
LOC: DAH 10:17
PROVIDERS: ATTEND Student in an Organized Health Care Education/Training Program
DX: K94.23 Gastrostomy malfunction (principal); Z20.822 Contact with and (suspected) exposure to COVID-19; J45.909 Unspecified asthma, uncomplicated; K21.9 Gastro-esophageal reflux disease without esophagitis; F31.9 Bipolar disorder, unspecified; G47.30 Sleep apnea, unspecified; E11.9 Type 2 diabetes mellitus without complications; M19.90 Unspecified osteoarthritis, unspecified site; D64.9 Anemia, unspecified; E78.5 Hyperlipidemia, unspecified; Z82.49 Family history of ischemic heart disease and other diseases of the circulatory system; Z98.84 Bariatric surgery status; Z88.6 Allergy status to analgesic agent; Z88.3 Allergy status to other anti-infective agents; Z88.2 Allergy status to sulfonamides; Y83.8 Other surgical procedures as the cause of abnormal reaction of the patient, or of later complication, without mention of misadventure at the time of the procedure
CPT/HCPCS: 36415; 43762; 74018; 80053; 82948; 87635; A4215; A4221; A4222; A4223; A4344; A4452; A4606; A4649; A4663; A5113; B4088; C9803; J0330 ×2; J0690; J1100; J2001 ×2; J2250; J2405; J2704; J2710; J3010; J3490; J7030

== ENCOUNTER → 2021-03-03 | Outpatient (CLI) | payer MEDICARE ==
[~2021-03-03] MED LIST changes: -0.9%NACL 1000ML 1,000 ML IV SCH
== END | disposition home or self-care (01) ==
LOC: OIH 13:27
PROVIDERS: ATTEND Internal Medicine
DX: M19.041 Primary osteoarthritis, right hand (principal); M19.042 Primary osteoarthritis, left hand; M51.37 Other intervertebral disc degeneration, lumbosacral region; M51.36 Other intervertebral disc degeneration, lumbar region; M48.07 Spinal stenosis, lumbosacral region; M46.1 Sacroiliitis, not elsewhere classified; M41.86 Other forms of scoliosis, lumbar region; M19.071 Primary osteoarthritis, right ankle and foot; M19.072 Primary osteoarthritis, left ankle and foot
CPT/HCPCS: 72100; 72202; 73630

== ENCOUNTER → 2022-10-12 | Outpatient (CLI) | payer MEDICARE ==
[~2022-10-12] MED LIST changes: +CLOP-31 PO; -CLOP75TA14 PO; +REGADENOSON 0.4 MG/5 ML PF SYG IVP SCH
== END | disposition home or self-care (01) ==
LOC: RAH 08:54
PROVIDERS: ATTEND Internal Medicine Cardiovascular Disease
DX: I20.9 Angina pectoris, unspecified (principal)
CPT/HCPCS: 78452; 96374; 93017; J2785; A9500 ×2

== ENCOUNTER → 2022-11-03 | Outpatient (CLI) | payer MEDICARE ==
[~2022-11-03] MED LIST changes: -REGADENOSON 0.4 MG/5 ML PF SYG IVP SCH
== END | disposition home or self-care (01) ==
LOC: RAH 08:40
PROVIDERS: ATTEND Physical Medicine & Rehabilitation
DX: M75.111 Incomplete rotator cuff tear or rupture of right shoulder, not specified as traumatic (principal)
CPT/HCPCS: 73221

== ENCOUNTER → 2023-01-30 | Outpatient (CLI) | payer MEDICARE ==
[~2023-01-30] MED LIST changes: +AZEL137S11 NS; -CETI-261 PO; +CETI10CA5 PO; +CHOL400D7 PO; +CLAR-44 PO; -CLOP-31 PO; +ESTR1VAG VG; +FOLI200T12 PO; -LAMO25TA3 PO; +LIFI1DRO OP; +METO25TA3 PO; +MINO100 PO; +PANT40TA55 PO; +SUCR1TAB PO; +TEMA15CA PO; +TIZA-194 PO; +VITA200C23 PO; +VITAMIN C PO
== END | disposition home or self-care (01) ==
LOC: RAH 09:38
PROVIDERS: ATTEND Physical Medicine & Rehabilitation
DX: M47.22 Other spondylosis with radiculopathy, cervical region (principal); M54.2 Cervicalgia
CPT/HCPCS: 72141

== ENCOUNTER → 2023-02-22 | Outpatient (CLI) | payer MEDICARE ==
[~2023-02-22] MED LIST changes: +IOHEXOL-350 75 ML VIAL IV ONE
== END | disposition home or self-care (01) ==
LOC: RAH 08:29
PROVIDERS: ATTEND Urology
DX: K57.30 Diverticulosis of large intestine without perforation or abscess without bleeding (principal); N32.1 Vesicointestinal fistula; R33.9 Retention of urine, unspecified; N32.89 Other specified disorders of bladder; I70.0 Atherosclerosis of aorta; M47.815 Spondylosis without myelopathy or radiculopathy, thoracolumbar region
CPT/HCPCS: 74178; Q9967

== ENCOUNTER → 2023-08-18 | Outpatient (CLI) | payer MEDICARE ==
[~2023-08-18] MED LIST changes: -ACET650O3 PO; +ALBU90AE IH; -CETI10CA5 PO; -CHOL400D7 PO; -CLAR-44 PO; +CLOP75TA32 PO; +CYAN10007 IJ; +DOCU-280 PO; -ESTR1VAG VG; +ESTR1VAG10 VG; -IOHEXOL-350 75 ML VIAL IV ONE; -LIFI1DRO OP; +LUMA10.5 PO; +MERO1PIG IV; -MINO100 PO; -PANT40TA55 PO; +PHEN-947 PO; -PHENERG GT; +ROPI0.2535 PO; -SUCR1TAB PO; -TEMA15CA PO; -VITA200C23 PO; -VITAMIN C PO
[2023-08-18 16:06] LABS: CREATININE 0.8 mg/dL (0.5-1.5)
== END | disposition home or self-care (01) ==
LOC: LAB 14:05
PROVIDERS: ATTEND Otolaryngology
DX: H90.3 Sensorineural hearing loss, bilateral (principal)
CPT/HCPCS: 36415; 82565; 84520

== ENCOUNTER → 2023-08-24 | Outpatient (CLI) | payer MEDICARE ==
[~2023-08-24] MED LIST changes: +GADOTERATE MEGLUMINE 10 MMOL/20 ML VIAL IV ONE
== END | disposition home or self-care (01) ==
LOC: RAH 10:23
PROVIDERS: ATTEND Otolaryngology
DX: H90.3 Sensorineural hearing loss, bilateral (principal)
CPT/HCPCS: 70553; A9575

== ENCOUNTER 2023-10-29 15:40 | Emergency (ER) | payer MEDICARE ==
[~2023-10-29] VITALS: Ht 160 cm; Wt 63.5 kg
[~2023-10-29 15:40] MED LIST changes: -GADOTERATE MEGLUMINE 10 MMOL/20 ML VIAL IV ONE
[2023-10-29 15:57] LABS: HEMATOCRIT 35.4 % (36-48); MEAN CORPUSCULAR HEMOGLOBIN 31.5 pg (27.0-33.0); MEAN CORPUSCULAR HGB CONC 33.3 g/dL (32.0-36.0); MEAN CORPUSCULAR VOLUME 94.4 fL (79-99); RED BLOOD CELL COUNT(AUTO) 3.75 MIL/uL (4.00-5.50); RED CELL DISTRIBUTION WIDTH 13.4 % (11.0-15.5); WHITE BLOOD COUNT (AUTO) 4.8 K/uL (4.8-10.8)
[2023-10-29 16:10] LABS: CREATININE 0.8 mg/dL (0.5-1.0); INR <= 0.93 (0.85-1.15); POTASSIUM 3.6 mmol/L (3.5-5.1); PROTHROMBIN TIME 10.3 SEC (9.6-11.6)
[2023-10-29 16:11] LABS: PARTIAL THROMBOPLASTIN TIME 25.6 SEC (26.3-35.5)
[2023-10-29 18:48] VITALS: O2SAT 97
[2023-10-29 19:14] VITALS: BP 134/76; PULSE 59; RESP 18
[2023-10-29 19:29] LABS: APPEARANCE,URINE CLOUDY (CLEAR); BILIRUBIN,URINE NEGATIVE (NEGATIVE); COLOR,URINE LIGHT-YELLOW (YELLOW); GLUCOSE, URINE (UA) NEGATIVE (NEGATIVE); KETONES,URINE NEGATIVE (NEGATIVE); LEUKOCYTE ESTERASE ,URINE 500 Leu/uL (NEGATIVE); NITRATE,URINE 2+ (NEGATIVE); OCCULT BLOOD,URINE NEGATIVE (NEGATIVE); PH,URINE 6.5 (5.0-8.0); PROTEIN,URINE NEGATIVE (NEGATIVE); UROBILINOGEN,URINE 0.2 mg/dL (0.2-1.0)
[2023-10-29 19:31] LABS: ADD UA MICROSCOPIC YES
[2023-10-29 19:36] LABS: BACTERIA,URINE MOD /HPF (None Seen); MUCUS,URINE RARE LPF (None Seen); WBC CLUMP FEW /HPF (0-1); WBC,URINE 51-100 /HPF (0-1); YEAST,URINE BUDDING RARE /HPF (None Seen)
[2023-10-29] MEDS ORDERED: MACR100 PO (19:59)
[2023-10-29] MEDS ORDERED: NITROFURANTOIN MONOHYD/M-CRYST 100 MG CAPSULE PO ONE (20:00)
== END 2023-10-29 20:08 | disposition home or self-care (01) ==
LOC: EDH 15:40
DX: R07.89 Other chest pain (principal); N30.00 Acute cystitis without hematuria; M19.90 Unspecified osteoarthritis, unspecified site; I11.0 Hypertensive heart disease with heart failure; I50.9 Heart failure, unspecified; K21.9 Gastro-esophageal reflux disease without esophagitis; Z79.02 Long term (current) use of antithrombotics/antiplatelets; Z79.899 Other long term (current) drug therapy; Z86.73 Personal history of transient ischemic attack (TIA), and cerebral infarction without residual deficits; Z87.440 Personal history of urinary (tract) infections; Z88.0 Allergy status to penicillin; Z88.1 Allergy status to other antibiotic agents; Z88.2 Allergy status to sulfonamides; Z88.5 Allergy status to narcotic agent; Z88.6 Allergy status to analgesic agent; Z88.8 Allergy status to other drugs, medicaments and biological substances; Z90.49 Acquired absence of other specified parts of digestive tract; Z90.710 Acquired absence of both cervix and uterus; Z91.041 Radiographic dye allergy status
CPT/HCPCS: 36415; 71045; 80048; 81001; 83735; 83880; 84484; 85027; 85610; 85730; 87077; 87088; 87186; 93005

== ENCOUNTER → 2024-03-14 | Outpatient (CLI) | payer MEDICARE ==
[~2024-03-14] MED LIST changes: +IOHEXOL 350 MG/ML 100ML INFUS..BTL IV ONE; +MACR100 PO; +METOPROLOL TARTRATE 1 MG/ML 5ML VIAL IV ONE; -ROSU5TAB12 PO; +ROSU5TAB43 PO
== END | disposition home or self-care (01) ==
LOC: RAH 10:43
PROVIDERS: ATTEND Internal Medicine Cardiovascular Disease
DX: M47.26 Other spondylosis with radiculopathy, lumbar region (principal); M41.86 Other forms of scoliosis, lumbar region; M47.817 Spondylosis without myelopathy or radiculopathy, lumbosacral region; R06.02 Shortness of breath
CPT/HCPCS: 75574; 72100; J3490; Q9967

== ENCOUNTER → 2024-04-08 | Outpatient (CLI) | payer MEDICARE ==
[~2024-04-08] MED LIST changes: -IOHEXOL 350 MG/ML 100ML INFUS..BTL IV ONE; -METOPROLOL TARTRATE 1 MG/ML 5ML VIAL IV ONE
== END | disposition home or self-care (01) ==
LOC: RAH 14:02
PROVIDERS: ATTEND Internal Medicine
DX: M47.26 Other spondylosis with radiculopathy, lumbar region (principal)
CPT/HCPCS: 72148

== ENCOUNTER → 2024-05-16 | Outpatient (CLI) | payer MEDICARE | END | disposition home or self-care (01) | LOC: SHCH 14:17 | PROVIDERS: ATTEND Internal Medicine Cardiovascular Disease | DX: I73.9 Peripheral vascular disease, unspecified (principal); I87.1 Compression of vein; I87.2 Venous insufficiency (chronic) (peripheral) | CPT/HCPCS: 93925; 93970 ==

== ENCOUNTER → 2024-06-07 | Outpatient (CLI) | payer MEDICARE ==
[~2024-06-07] MED LIST changes: -ROSU5TAB43 PO; +ROSU5TAB51 PO
--- NOTE | 2024-06-07 12:08 | HMCIMG ---
SCREENING MAMMOGRAM REASON: Annual Exam COMPARISON: none TECHNIQUE: CC and MLO views of the bilateral breasts were performed.CAD was performed as well. FINDINGS: Parenchymal density: There are scattered areas of fibroglandular density. There are no focal mass lesions. There are no pathologic appearing calcifications. There is no evidence of architectural distortion or skin thickening. IMPRESSION: Normal screening mammogram The patient was entered into a reminder system with a target due date for their next mammogram. BI-RADS CATEGORY 1: NEGATIVE Recommend monthly self breast exam as well as annual clinical examination. A negative x-ray should not delay biopsy if a dominant or clinically suspicious mass is present, since 8-10% of cancers are not identified by mammography. Dense breasts particularly, may obscure an underlying neoplasm. Some of these may be detected clinically and therefore, clinical examination is an essential part of breast evaluation.
== END | disposition home or self-care (01) ==
LOC: RAH 10:34
PROVIDERS: ATTEND Internal Medicine
DX: Z12.31 Encounter for screening mammogram for malignant neoplasm of breast (principal); R92.30 Dense breasts, unspecified
CPT/HCPCS: 77067

== ENCOUNTER → 2024-07-23 | Outpatient (CLI) | payer MEDICARE ==
[~2024-07-23] MED LIST changes: -ALBU90AE IH; +AMLO-257 PO; -AZEL137S11 NS; +AZEL23SP2 NS; +CARI1.5C PO; +CETI-89 PO; -CLOP75TA32 PO; +COLE1TAB2 PO; +DIPH-1150 PO; -DOCU-280 PO; +FOLI1 PO; -FOLI200T12 PO; -LUMA10.5 PO; -MACR100 PO; -MERO1PIG IV; +METH1TAB30 PO; -METO25TA3 PO; +METO25TA6 PO; +PANT40TA54 PO; -PHEN-947 PO; +PROM12.513 PO; -ROPI0.2535 PO; -ROSU5TAB51 PO
--- NOTE | 2024-07-23 10:58 | HMCIMG ---
SHOULDER COMP 2+VWS LT REASON: LEFT SHOULDER PAIN TECHNIQUE: 2 views were obtained. FINDINGS: There is no evidence of fracture or dislocation. There is no joint effusion. The soft tissues appear unremarkable. There is no evidence of a radiopaque foreign body. IMPRESSION: No acute findings.
== END | disposition home or self-care (01) ==
LOC: RAH 09:40
PROVIDERS: ATTEND Physical Medicine & Rehabilitation
DX: M25.512 Pain in left shoulder (principal)
CPT/HCPCS: 73030

== ENCOUNTER 2024-07-31 06:19 | Day surgery (SDC) | payer MEDICARE ==
[2024-07-31] VITALS (10 sets, daily range): BP systolic 96–128; BP diastolic 58–75; PULSE 62–70; RESP 15–18; TEMP 97.1–207.1
[~2024-07-31] VITALS: Ht 160 cm; Wt 71.2 kg
[~2024-07-31 06:19] MED LIST changes: +0.9%NACL 1000ML 1,000 ML IV ONE; -AMLO-257 PO; -DIPH-1150 PO; -METH1TAB30 PO; -PROM12.513 PO
[2024-07-31] MEDS ORDERED: proPOFol 10 MG/ML 20ML VIAL IV ONE (08:18)
== END 2024-07-31 09:35 | disposition home or self-care (01) ==
LOC: DAH 06:19 → ENDO 06:19
PROVIDERS: ATTEND Internal Medicine
DX: R10.13 Epigastric pain (principal); R11.2 Nausea with vomiting, unspecified; K21.9 Gastro-esophageal reflux disease without esophagitis; F32.A Depression, unspecified; R13.12 Dysphagia, oropharyngeal phase; J45.909 Unspecified asthma, uncomplicated; E11.9 Type 2 diabetes mellitus without complications; M19.90 Unspecified osteoarthritis, unspecified site; K55.8 Other vascular disorders of intestine; K52.831 Collagenous colitis; Z87.440 Personal history of urinary (tract) infections; Z86.73 Personal history of transient ischemic attack (TIA), and cerebral infarction without residual deficits; Z79.899 Other long term (current) drug therapy; Z98.890 Other specified postprocedural states; Z88.1 Allergy status to other antibiotic agents; Z88.5 Allergy status to narcotic agent; Z88.6 Allergy status to analgesic agent; Z88.8 Allergy status to other drugs, medicaments and biological substances; Z90.49 Acquired absence of other specified parts of digestive tract; Z90.710 Acquired absence of both cervix and uterus; G47.30 Sleep apnea, unspecified; Z99.89 Dependence on other enabling machines and devices
CPT/HCPCS: 82948 ×2; 43239; J7030 ×2; J2704; A4620; A4215; A4223; A7002; A4222; A4221; A4663; A4606; J3490

== ENCOUNTER → 2024-08-12 | Outpatient (CLI) | payer MEDICARE ==
[~2024-08-12] MED LIST changes: -0.9%NACL 1000ML 1,000 ML IV ONE
--- NOTE | 2024-08-12 10:00 | HMCIMG ---
MR SHOULDER LEFT WO HISTORY: Left shoulder pain COMPARISON: None TECHNIQUE: MRI of the left shoulder was performed utilizing multiple pulse sequences in axial, coronal and sagittal planes. Patient was not given contrast through intravenous route. FINDINGS: No abnormal signal intensity is seen of the visualized bony structure. Hypertrophic degenerative changes are seen of the acromioclavicular joint. There is downward sloping of acromion in a medial to lateral direction encroaching upon the rotator cuff tendon and muscles. There is rotator cuff tendinosis. Tiny amount of fluid is seen in the subacromial-subdeltoid bursa complex may be related to minimal bursitis. The glenoid labrum is intact. Bicipital tendon is seen within its groove. No appreciable amount of joint effusion is seen. IMPRESSION: 1. Rotator cuff tendinosis. Tiny amount of fluid is seen in the subacromial-subdeltoid bursa complex may be related to minimal bursitis.
== END | disposition home or self-care (01) ==
LOC: RAH 08:50
PROVIDERS: ATTEND Student in an Organized Health Care Education/Training Program
DX: M19.012 Primary osteoarthritis, left shoulder (principal); M75.102 Unspecified rotator cuff tear or rupture of left shoulder, not specified as traumatic; M67.814 Other specified disorders of tendon, left shoulder; M75.42 Impingement syndrome of left shoulder
CPT/HCPCS: 73221

== ENCOUNTER 2024-09-20 11:48 | Day surgery (SDC) | payer MEDICARE ==
--- NOTE | 2024-09-16 11:04 | EKG ---
[facility] Test Date: 2024-09-16 Test Time: 12:00:52 Pat Name: ANGELIC MCGARRY Department: [facility] Room: Gender: F Hay Buckler: [id number] : 1960 Requested By: BESS VALLEJO Order Number: [id number] Reading MD: Uche Geronimo Measurements Intervals [place] Rate: 73 P: 36 [place]: 146 QRS: 26 QRSD: 72 T: 20 QT: 380 QTc: 418 Interpretive Statements Normal sinus rhythm Compared to ECG 07/02/2024 16:32:13 Ventricular premature complex(es) no longer present Aberrant conduction of supraventricular beat(s) no longer present Electronically Signed On 09-16-2024 16:05:21 MANAGER STUDIO by Uche Geronimo Please click the below link to view image of tracing.
[2024-09-16 11:05] LABS: BASOPHILS # (AUTO) 0.05 K/uL (0.00-0.20); BASOPHILS % (AUTO) 0.9 % (0.0-5.0); EOSINOPHILS # (AUTO) 0.18 K/uL (0.00-0.70); EOSINOPHILS % (AUTO) 3.1 % (0.0-8.0); HEMATOCRIT 40.2 % (36-48); IMMATURE GRANULOCYTE ABSOLUTE 0.02 K/uL (0-1); LYMPHOCYTES # (AUTO) 1.9 K/uL (1.0-4.8); LYMPHOCYTES % (AUTO) 32.7 % (21.0-51.0); MEAN CORPUSCULAR HGB CONC 32.3 g/dL (32.0-36.0); MEAN CORPUSCULAR VOLUME 95.9 fL (79-99); MONOCYTES # (AUTO) 0.5 K/uL (0.1-1.0); MONOCYTES % (AUTO) 8.5 % (3.0-13.0); NEUTROPHILS # (AUTO) 3.2 K/uL (1.8-7.7); NEUTROPHILS % (AUTO) 54.5 % (40.0-77.0); PLATELET COUNT (AUTO) 202 K/uL (130-400); RED BLOOD CELL COUNT(AUTO) 4.19 MIL/uL (4.00-5.50); RED CELL DISTRIBUTION WIDTH 12.8 % (11.0-15.5); WHITE BLOOD COUNT (AUTO) 5.9 K/uL (4.8-10.8)
[2024-09-16 11:10] LABS: CREATININE 0.8 mg/dL (0.5-1.0); POTASSIUM 4.5 mmol/L (3.5-5.1)
[2024-09-16 11:14] VITALS: BP 145/79; PULSE 75; RESP 18; TEMP 97.2
[2024-09-20] VITALS (13 sets, daily range): BP systolic 114–144; BP diastolic 57–80; PULSE 62–78; RESP 14–18; TEMP 96.8–207.5
[~2024-09-20] VITALS: Ht 160 cm; Wt 73.5 kg
[~2024-09-20 11:48] MED LIST changes: +ALKA-SELTZER; +ASPI-1005 PO; +CA C1TAB98 PO; -CETI-89 PO; +CHOL500045 PO; +CHOL5POW MC; +DIPH-1150 PO; +LORA-997 PO; +PROM25TA7 PO; +ROPI0.2535 PO; +SUCR1TAB2 PO; +VITA-395 PO; +[UNRECOGNIZED DRUG - CODE] PO; +[UNRECOGNIZED DRUG - OTHER]
[2024-09-20] MEDS ORDERED: BUPIvacaine/PF 0.25% 30ML VIAL IJ ONE (12:36)
[2024-09-20 12:53] LABS: INR <= 0.93 (0.85-1.15); PROTHROMBIN TIME 9.8 SEC (9.6-11.6)
[2024-09-20] MEDS: 0.9%NACL 1000ML 1,000 ML IV ONE (12:56)
[2024-09-20] MEDS: FAMOTIDINE 20MG VIAL IV ONE (12:56)
[2024-09-20] MEDS: ceFAZolin SODIUM 2 GM VIAL ONE (12:57)
[2024-09-20] MEDS ORDERED: MEPERIDINE-PF 100 MG/ML SYG ONE (13:21)
[2024-09-20] MEDS ORDERED: PROMETHAZINE HCL 25 MG/ML 1ML AMPULE IM ONE (13:21)
[2024-09-20] MEDS ORDERED: dexaMETHasone SOD PHOSPHATE 4 MG/ML 1ML VIAL ONE (13:24)
[2024-09-20] MEDS ORDERED: LIDOCAINE PF 100MG/5ML (2%) SYRINGE 5ML ONE (13:24)
[2024-09-20] MEDS ORDERED: MIDAZOLAM HCL 1 MG/ML 2ML VIAL ONE (13:24)
[2024-09-20] MEDS ORDERED: proPOFol 10 MG/ML 20ML VIAL IV ONE (13:24)
[2024-09-20] MEDS ORDERED: rocuRONium bROMide 10MG/1ML 5ML VL ONE (13:25)
[2024-09-20] MEDS ORDERED: ROPivacaine 0.5% 5MG/ML 30ML ONE (13:30)
[2024-09-20] MEDS: INDOCYANINE GREEN 25 MG VIAL IJ ONE (13:34)
[2024-09-20] MEDS ORDERED: GLYCOPYRROLATE 0.2 MG/ML 5 ML VIAL ONE (15:54)
[2024-09-20] MEDS ORDERED: NEOSTIGMINE METHYLSULFATE 1MG/ML IV ONE (15:54)
[2024-09-20] MEDS ORDERED: DOCU-116 PO (16:14)
[2024-09-20] MEDS ORDERED: PERCT PO (16:14)
[2024-09-20] MEDS ORDERED: PROM25TA7 PO (16:22)
--- NOTE | 2024-09-20 16:44 | OP ---
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 She had an upper GI that confirmed the diagnosis the candy-cane of the Nubia limb was 5.5 cm. EGD done preoperatively did not show evidence of marginal ulcers and also showed evidence of a longer candy-cane limb. A resection of the candy-cane limb was indicated. Informed discussion and consent was obtained prior to the procedure which included talking about the risks of surgery such as bleeding, infection, small-bowel injury, possible open procedure and leak from the staple site. DESCRIPTION OF PROCEDURE: The patient was taken to the operating room and placed on the operating table in supine position. Next general anesthesia was induced and the patient was intubated. Her abdomen was prepped and draped in a sterile fashion. A time-out was called and the patient's identity, procedure and preoperative antibiotics were confirmed. She was placed in reverse Trendelenburg at approximately 12. I insufflated the abdominal cavity through a Veress needles in the right upper quadrant. After that I entered the abdominal cavity through a 5 mm incision using a 5 mm Optiview port with a angle scope. I immediately noted that she had a good amount of adhesions in her abdominal cavity. there were extensive adhesions in the left upper quadrant and epigastric region as well as a right lower quadrant region she had a few adhesions in the mid abdominal area that I did lysed with sharp scissors laparoscopically. Afterwards I was able to place four robotic ports across her mid abdomen (three eight 8 mm ports and a 12 mm port). The robot was docked. I will comment that I did not see evidence of a recurrence of her incisional hernia. I also did not see evidence of an internal hernia at the jejunojejunostomy space when I ran the Nubia limb. I was unable to assess the retro Nubia space because of the way her Nubia limb and colon were adhesed to the anterior abdominal wall. I immediately identified the Nubia limb of the gastric bypass and trace it up proximally towards the small gastric pouch. Identified the candy-cane portion of the Nubia limb. This did appear to be elongated. I identified the remnant stomach sitting beneath. I used the vessel sealer to take down the mesentery of the small bowel of the candy-cane limb. Once the small-bowel demarcated with the blood supply being removed. I used a white load on a sure formed stapler to transect across the candy-cane limb. I took approximately 5 cm. I took care to stay away from the gastric pouch. I inspected the area for hemostasis. Hemostasis was obtained with bipolar cautery. The small bowel was placed into a specimen bag and sent off. The robot was undocked. I checked the rest of the abdominal cavity for any evidence of bleeding and hemostasis was obtained with either electrocautery or bipolar cautery. I closed the fascia of the 12 mm port with a #1 Vicryl suture using a Candido-Timothy closure device. The pneumoperi toneum was evacuated and skin incisions were closed with 4-0 Monocryl and Dermabond was applied. Sponge, needle and instrument counts were accurate. The patient's anesthesia was reversed and she was extubated and taken to recovery room. BESS VALLEJO MD Sep 20, 2024 16:44
== END 2024-09-20 17:36 | disposition home or self-care (01) ==
LOC: DAH 11:48
PROVIDERS: ATTEND Surgery
DX: K90.2 Blind loop syndrome, not elsewhere classified (principal); K95.89 Other complications of other bariatric procedure; J45.909 Unspecified asthma, uncomplicated; G47.30 Sleep apnea, unspecified; I10 Essential (primary) hypertension; K21.9 Gastro-esophageal reflux disease without esophagitis; K55.019 Acute (reversible) ischemia of small intestine, extent unspecified; E11.9 Type 2 diabetes mellitus without complications; E78.5 Hyperlipidemia, unspecified; N30.20 Other chronic cystitis without hematuria; F90.9 Attention-deficit hyperactivity disorder, unspecified type; M19.90 Unspecified osteoarthritis, unspecified site; E66.9 Obesity, unspecified; Z68.29 Body mass index [BMI] 29.0-29.9, adult; Z98.84 Bariatric surgery status; Z98.890 Other specified postprocedural states; Z90.49 Acquired absence of other specified parts of digestive tract; Z88.8 Allergy status to other drugs, medicaments and biological substances; Z79.899 Other long term (current) drug therapy
CPT/HCPCS: 80048; 85025; 86850 ×2; 86900 ×2; 86901 ×2; 36415 ×2; 93005; 44238; 64488; 85610; 82948 ×2; 88307; A6260; J1100; A4663; A4606; A4344; A4215 ×2; J3490 ×3; J7030; J2550; J2003; J2250; J2704; J2710; J2175; J2795; J0690; A4649 ×4; A4222; A4221; A4216 ×2; A4223 ×2; A4600; J0665

== ENCOUNTER → 2025-04-25 | Outpatient (CLI) | payer MEDICARE ==
[~2025-04-25] MED LIST changes: -ALKA-SELTZER; -ASPI-1005 PO; -AZEL23SP2 NS; -CA C1TAB98 PO; -CARI1.5C PO; -CHOL5POW MC; -COLE1TAB2 PO; -CYAN10007 IJ; -DIPH-1150 PO; -ESTR1VAG10 VG; -PANT40TA54 PO; -PROM25TA7 PO; -SUCR1TAB2 PO; -TIZA-194 PO; +TIZA2CAP9 PO; -VITA-395 PO; -[UNRECOGNIZED DRUG - CODE] PO; -[UNRECOGNIZED DRUG - OTHER]
--- NOTE | 2025-04-25 15:35 | HMCIMG ---
TOE(S) 2+VWS LT REASON: PAIN IN LEFT FOOT TECHNIQUE: 2 views were obtained. FINDINGS: There is no evidence of fracture or dislocation. There is no joint effusion. The soft tissues appear unremarkable. There is no evidence of a radiopaque foreign body. There is ORIF from prior bunionectomy with orthopedic screws seen in the left first metatarsal head. There is osteopenia of the osseous structure. IMPRESSION: No acute findings. Status post bunionectomy with postsurgical changes with orthopedic screw seen in the left first metatarsal head. Osteopenia
--- NOTE | 2025-04-25 15:55 | HMCIMG ---
FOOT COMP 3+VWS LT REASON: PAIN IN LEFT FOOT TECHNIQUE: 3 views were obtained. FINDINGS: There is no evidence of fracture or dislocation. There is no joint effusion. The soft tissues appear unremarkable. There is no evidence of a radiopaque foreign body. There is bunionectomy with postsurgical changes of the left first metatarsal head with orthopedic screw in place. IMPRESSION: No acute findings. Status post bunionectomy of the left first ray with postsurgical changes
== END | disposition home or self-care (01) ==
LOC: RAH 13:34
PROVIDERS: ATTEND Internal Medicine
DX: M85.872 Other specified disorders of bone density and structure, left ankle and foot (principal); M79.672 Pain in left foot; Z98.890 Other specified postprocedural states
CPT/HCPCS: 73630; 73660

== ENCOUNTER 2025-07-22 19:52 | Emergency (ER) | payer MEDICARE ==
[~2025-07-22] VITALS: Ht 160 cm; Wt 77.1 kg
--- NOTE | 2025-07-22 20:00 | NUR ---
STROKE ALERT CALLED OVERHEAD TO ROOM 19. PT BEDDED DIRECTLY
--- NOTE | 2025-07-22 20:14 | ERN ---
General Chief Complaint: Headache Stated Complaint: C/O "SEVERE HEADACHE" Time Seen by MD: 19:55 History of Present Illness Initial Comments 65-year-old female, history of hypertension, episodes of tachycardia not anticoagulated, previous stroke without any lasting deficits, presents for sudden onset of ringing in the ears, headache, right blurry vision from the right eye, paresthesia to the left face, and the sensation of decreased strength in the right arm and leg. No recent falls. No recent fevers cough congestion or chest pains or dyspnea. Onset of symptoms: 7:15 p.m. 07/22/2025 Comorbidities: Previous stroke, no anticoagulation, hypertension Allergies: Coded Allergies: Nalbuphine HCl (Verified Allergy, Unknown, 02/18/14) Sulfa (Sulfonamide Antibiotics) (Verified Allergy, Unknown, 02/18/14) codeine (Verified Allergy, Unknown, 02/18/14) fentanyl (Unverified Allergy, Unknown, 12/28/22) hydromorphone (Unverified Allergy, Unknown, 12/01/14) iodine (Verified Allergy, Unknown, 02/18/14) phenobarbital (Unverified Allergy, Unknown, 02/18/14) pregabalin (Verified Allergy, Unknown, 02/18/14) morphine (Unverified Adverse Reaction, Intermediate, VOMITTING, 02/18/14) HEADACHES NSAIDS (Non-Steroidal Anti-Inflamma (Verified Adverse Reaction, Unknown, GI UPSET, 01/03/23) ondansetron (Verified Adverse Reaction, Unknown, GI UPSET, 01/03/23) Home Meds Active Scripts Metoprolol Tartrate (Metoprolol Tartrate) 25 Mg Tablet, 25 MG PO BID for 90 Days, #180 TAB Prov:MARY NEVILLE MD 07/03/24 Folic Acid (Folvite) 1 Mg Tab, 1 TAB PO DAILY for 90 Days, #90 TAB 0 Refills Prov:MARY NEVILLE MD 07/03/24 Reported Medications Tizanidine HCl (Tizanidine HCl) 2 Mg Capsule, 2 MG PO HS, CAP 03/17/25 Loratadine (Allergy Relief) 10 Mg Tablet, 10 MG PO PM, TAB 09/16/24 Cholecalciferol (Vitamin D3) (Vitamin D3) 125 Mcg (5000 Unit) Tablet, 125 MCG PO AD, TAB 09/16/24 Ropinirole HCl (Ropinirole HCl) 0.25 Mg Tablet, 0.25 MG PO PM, TAB 09/16/24 Past Medical History Past Medical History: CVA, Diabetes-Type II, Hypertension Medical History Other: SPONDYLITIS, COLLAGENOUS COLITIS, CABALLERO'S ESOPHAGUS, MAY-THURNER SYNDROME Past Surgical History: Cholecystectomy, Other Surgical History Other: COLON RESECTION ROS Dictation CONSTITUTIONAL: No chills, no fever, no weakness, no diaphoresis, no malaise. HEAD/FACE: No signs of trauma. EENT: No eye pain, no blurred vision, no tearing, no double vision, no ear pain, no ear discharge, no nose pain, no nasal congestion, no throat pain, no throat swelling, no mouth pain. RESPIRATORY: No cough, no orthopnea, no SOB, no stridor, no wheezing. CARDIOVASCULAR: No chest pain, no edema, no palpitations, no syncope. GASTROINTESTINAL/ABDOMINAL: No abdominal pain, no constipation, no diarrhea, no nausea, no vomiting. GENITOURINARY: No abnormal discharge, no dysuria, no frequent urination, no hematuria. No complaints of pain in the genitals. MUSCULOSKELETAL: No back pain, no gout, no joint pain, no joint swelling, no muscle pain, no muscle stiffness, no neck pain. INTEGUMENTARY: No change in color, no change in hair/nails, no dryness, no lesion, no lumps, no rash. NEUROLOGICAL/PSYCH: Headache, right-sided vision changes, tinnitus, left tongue decreased sensation, sensation of right arm and right leg weakness. HEMATOLOGIC/LYMPHATIC: Not anemic, no history of blood clots, no apparent bleeding, no bruising, glands not swollen. All Systems Negative, Except as Noted. Results Laboratory and Microbiology Lab and Micro Result Laboratory Tests Test 07/22/25 20:30 White Blood Count 7.6 K/uL (4.8-10.8) Red Blood Count 4.16 MIL/uL (4.00-5.50) Hemoglobin 12.7 g/dL (12.0-16.0) Hematocrit 39.8 % (36-48) Mean Corpuscular Volume 95.7 fL (79-99) Mean Corpuscular Hemoglobin 30.5 pg (27.0-33.0) Mean Corpuscular Hemoglobin Concent 31.9 g/dL (32.0-36.0) L Red Cell Distribution Width 12.6 % (11.0-15.5) Platelet Count 211 K/uL (130-400) Mean Platelet Volume 9.6 fL (7.5-10.5) Immature Granulocyte % (Auto) 0.4 % (0-1) Neutrophils (%) (Auto) 51.0 % (40.0-77.0) Lymphocytes (%) (Auto) 34.4 % (21.0-51.0) Monocytes (%) (Auto) 9.8 % (3.0-13.0) Eosinophils (%) (Auto) 3.6 % (0.0-8.0) Basophils (%) (Auto) 0.8 % (0.0-5.0) Neutrophils # (Auto) 3.9 K/uL (1.8-7.7) Lymphocytes # (Auto) 2.6 K/uL (1.0-4.8) Monocytes # (Auto) 0.7 K/uL (0.1-1.0) Eosinophils # (Auto) 0.27 K/uL (0.00-0.70) Basophils # (Auto) 0.06 K/uL (0.00-0.20) Absolute Immature Granulocyte (auto 0.03 K/uL (0-1) Nucleated Red Blood Cells 0.0 % (0.0-0.19) Prothrombin Time 9.7 SEC (9.6-11.6) Prothromb Time International Ratio <= 0.93 (0.85-1.15) Activated Partial Thromboplast Time 23.0 SEC (26.3-35.5) L Sodium Level 140 mmol/L (136-145) Potassium Level 3.8 mmol/L (3.5-5.1) Chloride Level 105 mmol/L (101-111) Carbon Dioxide Level 29 mmol/L (21-32) Blood Urea Nitrogen 12 mg/dL (7-18) Creatinine 0.8 mg/dL (0.5-1.0) Glomerular Filtration Rate Calc 81 mL/min (>90) Random Glucose 86 mg/dL (70-105) Total Calcium 8.5 mg/dL (8.5-10.1) Troponin I High Sensitivity 6 ng/L (4-50) MDM CC: Neurologic symptoms onset 7:15 p.m. 07/22/2025 hips Historian: Patient Comorbidities: Previous TIA/stroke, hypertension, unspecified tachycardia Limitations by social determinants of health: None Differential diagnosis: Stroke, TIA, subarachnoid, tumor, other neurologic disease. Stroke alert called on arrival to the ED. Onset of symptoms 07/22/2025 at 7:15 p.m.. NIHSS of 4: +1 visual field, +1 right motor arm drift, +1 right leg drift, +1 sensation loss. Initial vital signs: 161/82, otherwise stable. GCS 15. EKG: Sinus rhythm rate of 66 normal axis good R-wave progression intervals are stable no STEMI. Independently interpreted by me. Labs show no leukocytosis no anemia. Coags stable. Chemistry panel stable. Troponin normal. I reviewed the CT brain without contrast. No obvious bleeding. I spoke with the teleneurologist, we reviewed the imaging together and see no obvious bleeding. I did contact the radiologist for a stat read, but after about 30 minutes, still no answer on official read. The neurologist and I had a discussion and we agreed that we will go ahead with TNK at this time. Patient received TNK. She remained stable in the ER. I discussed the case with Dr. Santana, neurologist at [facility]. We did not have Neurology of the site. He accepts the transferred to the neuro ICU. Patient transferred in stable condition. ED Course Orders Procedure Category Date Status Time Ct Head/Brain W/O CT 07/22/25 Resulted Contrast 20:01 Cbc With Differential LAB 07/22/25 Complete 20:02 Troponin I High LAB 07/22/25 Complete Sensitivity 20:02 12 Lead Ekg Tracing- EKG 07/22/25 Resulted Technical 20:02 Basic Metabolic Panel LAB 07/22/25 Complete 20:02 Pt And Ptt LAB 07/22/25 Complete 20:02 12 Lead Ekg Tracing- EKG 07/22/25 Logged Technical 20:14 Tenecteplase (Tnkase) PHA 07/22/25 Complete 21:00 Current Medications Medications (Trade) Dose Ordered Sig/Jaime Route PRN Reason Start Time Stop Time Status Last Admin Dose Admin Tenecteplase (TNKase) 19.5 mg ONCE ONCE IV 07/22/25 21:00 07/22/25 21:01 DC 07/22/25 21:27 Vital Signs Date Time Temp Pulse Resp B/P (MAP) Pulse Ox O2 Delivery O2 Flow Rate FiO2 07/22/25 23:56 86 11 111/66 96 Room Air* 0 21 07/22/25 23:01 76 13 114/65 97 Room Air* 0 21 07/22/25 22:56 76 13 127/70 97 Room Air* 0 21 07/22/25 22:42 80 10 141/84 97 Room Air* 0 21 07/22/25 22:26 80 10 120/74 98 Room Air* 0 21 07/22/25 22:01 77 10 126/69 97 Room Air* 0 21 07/22/25 21:56 78 11 121/71 97 Room Air* 0 21 07/22/25 21:42 97.9 78 10 135/73 97 Room Air* 0 21 07/22/25 21:26 97.9 71 11 137/72 97 Room Air* 0 21 07/22/25 20:32 97.9 75 19 130/78 100 Room Air* 0 21 07/22/25 19:54 97.9 82 20 161/82 98 Room Air DX & DISP Disposition: Transfer ([facility] Neuro ICU, Dr Max dorantes) Departure Impression: Primary Impression: Ischemic stroke Critical Time: 30 minutes (Critical Care Procedure NoteAuthorized and Performed by: meTotal critical care time: Approximately 36 minutesDue to a high probability of clinically significant, life threatening deterioration, the patient required my highest level of preparedness to intervene emergently and I personally spent this critical care time directly and personally managing the patient. This critical care time included obtaining a history; examining the patient; pulse oximetry; ordering and review of studies; arranging urgent treatment with development of a management plan; evaluation of patient's response to treatment; frequent reassessment; and, discussions with other providers.This critical care time was performed to assess and manage the high probability of imminent, life-threatening deterioration that could result in multi-organ failure. It was exclusive of separately billable procedures and treating other patients and teaching time.Please see MDM section and the rest of the note for further information on patient assessment and treatment.) Condition: Stable Referrals: MARY NEVILLE MD (PCP) CR CHERY DO Jul 22, 2025 20:14
--- NOTE | 2025-07-22 20:28 | NUR ---
PT TAKEN TO CT WITH ED RN AT THIS TIME
--- NOTE | 2025-07-22 20:41 | NUR ---
NEURO TELE CONSULT DONE AT BEDSIDE.
--- NOTE | 2025-07-22 20:42 | EKG ---
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
[2025-07-22 20:55] LABS: IMMATURE GRANULOCYTE ABSOLUTE 0.03 K/uL (0-1); NUCLEATED RED BLOOD CELLS 0.0 % (0.0-0.19); PLATELET COUNT (AUTO) 211 K/uL (130-400); RED BLOOD CELL COUNT(AUTO) 4.16 MIL/uL (4.00-5.50); RED CELL DISTRIBUTION WIDTH 12.6 % (11.0-15.5); WHITE BLOOD COUNT (AUTO) 7.6 K/uL (4.8-10.8)
--- NOTE | 2025-07-22 21:00 | NUR ---
TRANSFER CALL PLACED TO [facility] MANAGER OF ALLIED HEALTH SERVICES. ALL LINES BUSY AT THIS TIME--CALL BACK NUMBER LEFT REQUESTED
[2025-07-22 21:04] LABS: INR <= 0.93 (0.85-1.15)
--- NOTE | 2025-07-22 21:04 | NUR ---
TRANSFER TENET TRAIN OPERATOR HAS CALLED BACK--TRANSFER INITIATED FOR MONITORED, NEUROLOGY ICU PATIENT
[2025-07-22 21:11] LABS: CREATININE 0.8 mg/dL (0.5-1.0); GLOMERULAR FILTR. RATE CALC 81.0 mL/min (>90); GLUCOSE,RANDOM 86.0 mg/dL (70-105); SODIUM SERUM 140.0 mmol/L (136-145); UREA NITROGEN, BLOOD 12.0 mg/dL (7-18)
--- NOTE | 2025-07-22 21:28 | HMCIMG ---
EXAM: CT Head Without Intravenous Contrast CLINICAL HISTORY: Thunderclap (thunderbolt) headache with blurred vision in both eyes, onset approximately 30 minutes before arrival. TECHNIQUE: Noncontrast axial CT images of the brain were obtained with multiplanar reformatted images. COMPARISON: June 30, 2020. FINDINGS: Brain Parenchyma: Normal sharpe-white matter differentiation. No evidence of acute intracranial hemorrhage, acute territorial infarction, mass lesion, or cerebral edema. Ventricular System and Cisterns: The ventricles and basal cisterns are normal in size and configuration. No hydrocephalus. No midline shift. Extra-axial Spaces: No subdural, epidural, or subarachnoid hemorrhage is identified. Posterior Fossa: The cerebellum and brainstem are unremarkable. Orbits: The globes and visualized orbital structures are unremarkable. Paranasal Sinuses and Mastoid Air Cells: Soft tissue opacification is noted within the left maxillary sinus. The remaining visualized paranasal sinuses and mastoid air cells are clear. Calvarium: No acute calvarial fracture. Soft Tissues: Unremarkable. IMPRESSION: No acute intracranial abnormality. Specifically, no CT evidence of intracranial hemorrhage or acute infarction in the setting of thunderclap headache. Left maxillary sinusitis. No significant interval change since the prior study, except for the - new Onset of left maxillary sinusitis disease. /Ladd
--- NOTE | 2025-07-22 21:32 | CONS ---
CONSULTATION NOTE DATE OF CONSULTATION: 07/22/25 ALLERGIES: Coded Allergies: Nalbuphine HCl (Verified Allergy, Unknown, 02/18/14) Sulfa (Sulfonamide Antibiotics) (Verified Allergy, Unknown, 02/18/14) codeine (Verified Allergy, Unknown, 02/18/14) fentanyl (Unverified Allergy, Unknown, 12/28/22) hydromorphone (Unverified Allergy, Unknown, 12/01/14) iodine (Verified Allergy, Unknown, 02/18/14) phenobarbital (Unverified Allergy, Unknown, 02/18/14) pregabalin (Verified Allergy, Unknown, 02/18/14) morphine (Unverified Adverse Reaction, Intermediate, VOMITTING, 02/18/14) HEADACHES NSAIDS (Non-Steroidal Anti-Inflamma (Verified Adverse Reaction, Unknown, GI UPSET, 01/03/23) ondansetron (Verified Adverse Reaction, Unknown, GI UPSET, 01/03/23) HOME MEDS: Active Scripts Metoprolol Tartrate (Metoprolol Tartrate) 25 Mg Tablet, 25 MG PO BID for 90 Days, #180 TAB Prov:MARY NEVILLE MD 07/03/24 Folic Acid (Folvite) 1 Mg Tab, 1 TAB PO DAILY for 90 Days, #90 TAB 0 Refills Prov:MARY NEVILLE MD 07/03/24 Reported Medications Tizanidine HCl (Tizanidine HCl) 2 Mg Capsule, 2 MG PO HS, CAP 03/17/25 Loratadine (Allergy Relief) 10 Mg Tablet, 10 MG PO PM, TAB 09/16/24 Cholecalciferol (Vitamin D3) (Vitamin D3) 125 Mcg (5000 Unit) Tablet, 125 MCG PO AD, TAB 09/16/24 Ropinirole HCl (Ropinirole HCl) 0.25 Mg Tablet, 0.25 MG PO PM, TAB 09/16/24 VITAL SIGNS Vital Signs Date Time Temp Pulse Resp B/P (MAP) Pulse Ox O2 Delivery O2 Flow Rate FiO2 07/22/25 20:32 97.9 75 19 130/78 100 Room Air* 0 21 07/22/25 19:54 97.9 82 20 161/82 98 Room Air LABORATORY RESULTS Laboratory Tests 07/22/25 20:30: White Blood Count 7.6, Red Blood Count 4.16, Hemoglobin 12.7, Hematocrit 39.8, Mean Corpuscular Volume 95.7, Mean Corpuscular Hemoglobin 30.5, Mean Corpuscular Hemoglobin Concent 31.9, Red Cell Distribution Width 12.6, Platelet Count 211, Mean Platelet Volume 9.6, Immature Granulocyte % (Auto) 0.4, Neutrophils (%) (Auto) 51.0, Lymphocytes (%) (Auto) 34.4, Monocytes (%) (Auto) 9.8, Eosinophils (%) (Auto) 3.6, Basophils (%) (Auto) 0.8, Neutrophils # (Auto) 3.9, Lymphocytes # (Auto) 2.6, Monocytes # (Auto) 0.7, Eosinophils # (Auto) 0.27, Basophils # (Auto) 0.06, Absolute Immature Granulocyte (auto 0.03, Nucleated Red Blood Cells 0.0, Prothrombin Time 9.7, Prothromb Time International Ratio <= 0.93, Activated Partial Thromboplast Time 23.0, Sodium Level 140, Potassium Level 3.8, Chloride Level 105, Carbon Dioxide Level 29, Blood Urea Nitrogen 12, Creatinine 0.8, Glomerular Filtration Rate Calc 81, Random Glucose 86, Total Calcium 8.5, Troponin I High Sensitivity 6 PLAN [place] [facility] Note # Demographics Consult Type: Acute Stroke Level 1 (0-4.5 hrs) Patient Location: Emergency Room First Name: ANGELIC Hastings Last Name: MALGORZATA Date of : 1960 Age: 65 Gender: Female Facility: [facility] Time of Initial Page (Central Time): 07/22/2025 20:20 First Contact with Site (Central Time): 07/22/2025 20:20 # HPI History: 65 yo F HTN, stroke with visual changes (with headaches) 715 pm onset and LKN headache like a lightening bolt, worse vision, tinnitus, L tongue feels different, L eye feels different, RUE RLE feels different. Slight/borderline drift. Hx of migraines No thinners, on ASA no missed. HCT no concerning findings. Brian blood when defecated 5 wks ago, notes related to hx of colitis. No hospitalization for bleeding. 843 pm Prefer TNK if radiology agrees no bleed on HCT Possible Thrombolytic candidate: - no intracranial hemorrhage history - not on warfarin or NOACs - no recent major surgery - no known active major internal bleeding - no known blood disorders - no stroke in last 3 months # Scores Time of exam and NIHSS (Central Time): 07/22/2025 20:33 Level of Consciousness 1a: [0] = Alert; keenly responsive LOC Questions 1b: [0] = Answers both questions correctly LOC Commands 1c: [0] = Performs both tasks correctly Best Gaze 2: [0] = Normal Visual 3: [2] = Complete hemianopia Facial Palsy 4: [1] = Minor paralysis Motor Arm Left 5a: [0] = No drift Motor Arm Right 5b: [1] = Drift Motor Leg Left 6a: [0] = No drift Motor Leg Right 6b: [1] = Drift Limb Ataxia 7: [0] = Absent Sensory 8: [1] = [id number] sensory loss Best Language 9: [1] = Oyht-tj-kvlceokj aphasia Dysarthria 10: [0] = Normal Extinction and Inattention 11: [0] = No abnormality NIHSS Total: 7 # Data Head CT: - no bleed - preliminarily reviewed by me, please refer to radiology read for official reading CTA Head: pending CTA Neck: pending # Assessment Impression: - Ischemic Stroke (Acute) # Plan Thrombolytic/Intervention: IV thrombolytic and possible IA candidate Thrombolytic Dosing: IV alteplase 0.9 mg/kg, max dose 90 mg; 10% of dose given over 1 minute IVP, remaining 90% given as infusion over 1 hour Time IV Thrombolytic Recommended (Central Time): 07/22/2025 20:43 Reason for TNK Delay: - further diagnostic evaluation ED was awaiting radiology interpretation to proceed with TNK - 917 pm [employer] discussed again with ED and agreed to proceed with TNK with ED MD and neurology agreeing no clear hemorrhage on Head CT Target Blood Pressure: - SBP < 180 - DBP < 105 Labs: - hemoglobin A1c - lipid panel - comprehensive metabolic panel - CBC Imaging: (urgency: routine): - MRI Brain without contrast Diagnostic Test: - echo without bubble study Therapy/Evaluation: - NPO until swallow evaluation - PT/OT evaluation - speech/swallow consultation Medication: - start statin with goal of LDL < 70 Thrombolytic Administration Recommendations: - I reviewed the risks/benefits/alternatives of IV thrombolytic therapy with the patient. They understand there is potential of life threatening hemorrhage from IV thrombolysis. I stated that I believe benefits outweighs risk. They wish to proceed with IV thrombolytic therapy. - BP goal< 180/105 for 24hrs post Thrombolytic administration - Call back if there is any decline in neurological condition - Use Labetalol 10-20mg IV prn or Nicardipine gtt to maintain BP parameters - No antiplatelets or anticoagulants for next 24 hrs unless indicated for emergent IA procedure or other life threatening situation - ICU admission Other: - If patient has any neurological deterioration please call me back immediately - I have discussed my recommendations with the referring provider # Logistics Attestation of consult completion: The patient is located at: [facility]. Facility staff participated in the visit. I performed this telemedicine visit from my offsite office utilizing interactive 2 way audio and visual telecommunication technology at the request of the onsite emergency room provider. Total time spent in telemedicine encounter: I spent 25 minutes reviewing clinical data and/or imaging, obtaining history, examining the patient, communicating with the onsite care team, and in preparation of this report. # Demographics First Name: ANGELIC PereiraLiliana Last Name: MALGORZATA Facility: [facility] Electronically signed at 07/22/2025 21:18 (Central Time) by MD SCOTTY Alford DAVID H MD Jul 22, 2025 21:32
[2025-07-22 21:42] VITALS: TEMP 97.8
--- NOTE | 2025-07-22 23:23 | NUR ---
TRANSFER PT. WAS ACCEPTED @ 2124 BY NELL WOMACK MD FOR TRANSFER TO [facility] [place] [facility]. BED ASSIGNMENT AT THIS TIME: 4227. REPORT: [phone]
--- NOTE | 2025-07-22 23:41 | NUR ---
[facility] CALLED FOR EMERGENT TRANSPORT OF NEUROLOGY ICU PATIENT THAT RECEIVED TNK
--- NOTE | 2025-07-22 23:49 | NUR ---
REPORT GIVEN TO SALLY MINAYA AT [facility]
[2025-07-22 23:56] VITALS: BP 111/66; PULSE 86; RESP 11; O2SAT 96
--- NOTE | 2025-07-22 23:56 | NUR ---
TRANSPORT ARRIVED FOR PT AT THIS TIME
--- NOTE | 2025-07-23 00:06 | NUR ---
TRANSPORT LEFT [facility] [place] AT THIS [place]. PENDING ARRIVAL TO [facility] [place]. PT SHOWS NO SIGNS OF DISTRESS. EVEN AND UNLABORED BREATHING NOTED.
== END 2025-07-23 00:06 | disposition short-term general hospital (02) ==
LOC: EDH 19:52
DX: I63.9 Cerebral infarction, unspecified (principal); I10 Essential (primary) hypertension; E11.9 Type 2 diabetes mellitus without complications; Z86.73 Personal history of transient ischemic attack (TIA), and cerebral infarction without residual deficits; Z88.2 Allergy status to sulfonamides; Z88.5 Allergy status to narcotic agent; Z88.6 Allergy status to analgesic agent; Z88.8 Allergy status to other drugs, medicaments and biological substances; Z90.49 Acquired absence of other specified parts of digestive tract; Z79.899 Other long term (current) drug therapy; Z87.19 Personal history of other diseases of the digestive system
CPT/HCPCS: 84484; 80048; 85025; 85610; 85730; 82948; 36415; 70450; 99291; 37195; 93005; J3101 ×2